=== PATIENT | female | born 1980 | race Two or more races ===

== ENCOUNTER 2018-11-04 10:33 | Emergency (ER) | payer MEDICAID ==
[~2018-11-04] VITALS: Ht 160 cm; Wt 64.4 kg
[2018-11-04 11:15] VITALS: BP 112/43
--- NOTE | 2018-11-04 11:15 | NUR ---
ED Nurse Note: Pt walked in from home due to insect bite on L upper arm/ unknown insect since Sunday11/01/18, causing her dizziness since then. Pain 05/27 alondra. AOx4, VSS. Will cont to monitor.
[2018-11-04] MEDS ORDERED: BACTRIM DS TAB1 EAC1 ORAL (11:55)
[2018-11-04] MEDS ORDERED: CEPHALEXIN500 MG ORAL (11:55)
[2018-11-04 12:03] VITALS: BP 116/68
--- NOTE | 2018-11-04 12:04 | NUR ---
ED Nurse Note: PT SITTING PEACEFULLY IN CHAIR IN NAD. AOX4. PRESCRIPTIONS AND DISCHARGE PAPERWORK EXPLAINED TO PT. PT VERBALIZES UNDERSTANDING AND ALL QUESTIONS ANSWERED. PRESCRIPTIONS AND DISCHARGE PAPERWORK GIVEN TO PT AND ID WRISTBAND REMOVED. PT WALKED OUT OF ER WITH STEADY GAIT.
--- NOTE | 2018-11-06 21:23 | Emergency Room Report ---
History of Present Illness General Chief Complaint: Animal Bite Source: Patient Present Illness HPI 37-year-old female presents ED for evaluation. Patient complaining of pain and swelling to left forearm 3 days. States she was bitten by some insect. Notes redness and swelling to the left forearm. Throbbing, 8 out of 10, nonradiating. Denies fevers or chills. Denies any discharge. No other aggravating relieving factors. Denies any other associated symptoms Allergies: Coded Allergies: No Known Allergies (Unverified , 11/04/18) Patient History Past Medical History: none Past Surgical History: none Pertinent Family History: none Social History: Denies: smoking, alcohol use, drug use Last Menstrual Period: 10/15/18 Now: No Immunizations: UTD Reviewed Nursing Documentation: PMH: Agreed; PSxH: Agreed Nursing Documentation-PMH Past Medical History: No Stated History Review of Systems All Other Systems: negative except mentioned in HPI Physical Exam Vital Signs Date Time Temp Pulse Resp B/P (MAP) Pulse Ox O2 Delivery O2 Flow Rate FiO2 11/04/18 10:41 98.2 102 21 110/43 97 Room Air Sp02 EP Interpretation: reviewed, normal General Appearance: no apparent distress, alert, GCS 15, non-toxic Head: normocephalic Eyes: bilateral eye normal inspection, bilateral eye PERRL ENT: normal ENT inspection Neck: normal inspection Respiratory: normal inspection Cardiovascular #1: normal inspection Gastrointestinal: normal inspection Rectal: deferred Genitourinary: no CVA tenderness Musculoskeletal: normal inspection Neurologic: alert, oriented x3, responsive, motor strength/tone normal, sensory intact, speech normal Psychiatric: normal inspection Skin: other - 2cm area of induration/erythema L forearm . no discharge Lymphatic: normal inspection Medical Decision Making Diagnostic Impression: Primary Impression: Insect bite Qualified Codes: S50.862A - Insect bite (nonvenomous) of left forearm, initial encounter; W57.XXXA - Bitten or stung by nonvenomous insect and other nonvenomous arthropods, initial encounter ER Course Hospital Course 37-year-old female presents to ED with redness, swelling to L forearm Differential diagnoses include: Cellulitis, dermatitis, insect bite, abscess Clinical course Patient placed on stretcher. After initial history, physical exam reveals a female in no acute distress. On exam there is a site for mild erythema and induration to the L forearm. There is no fluctuance. No swelling or pain to the left elbow. patient afebrile, nontoxic-appearing. Consistent with insect bite with superinfection. We'll discharge with antibiotics. Recommend warm compresses. Safe for discharge close outpatient follow-up. We'll provide referrals Diagnosis - bug bite stable and discharged to home with prescription for bactrim, Keflex. Instructed to followup with PMD. Instructed return to ED if symptoms recur or worsen Last Vital Signs Date Time Temp Pulse Resp B/P (MAP) Pulse Ox O2 Delivery O2 Flow Rate FiO2 11/04/18 12:03 98.4 82 20 116/68 100 Room Air Status: improved Disposition: HOME, SELF-CARE Condition: Stable Scripts Trimethoprim/Sulfamethoxazole 160/800* (BACTRIM DS TABLET*) 1 Each Tablet 1 TAB ORAL Q12H, #14 TAB 0 Refills Prov: Gregory Laguerre MD 11/04/18 Cephalexin* (KEFLEX*) 500 Mg Capsule 500 MG ORAL EVERY 6 HOURS for 7 Days, CAP Prov: Gregory Laguerre MD 11/04/18 Referrals: NOT CHOSEN IPA/,REFERRING (PCP) [facility] Patricia Yepez [facility] Patient Instructions: Insect Bite, [id number] Gregory Laguerre MD Nov 06, 2018 21:23
== END 2018-11-04 12:15 | disposition home or self-care (01) ==
LOC: EMR 11:55
DX: S50.862A Insect bite (nonvenomous) of left forearm, initial encounter (principal); W57.XXXA Bitten or stung by nonvenomous insect and other nonvenomous arthropods, initial encounter; Y92.9 Unspecified place or not applicable
CPT/HCPCS: 99282

== ENCOUNTER 2018-11-14 18:28 | Inpatient (IN) | payer MEDICAID ==
[~2018-11-14] VITALS: Ht 157.5 cm; Wt 57.6 kg
[~2018-11-14 18:28] MED LIST: BACTRIM DS TAB1 EAC1 ORAL; CEPHALEXIN500 MG ORAL
[2018-11-14] MEDS ORDERED: NKM (18:37)
[2018-11-14 19:40] LABS: ANION GAP 9 mmol/L (5-15); BLOOD UREA NITROGEN 12 mg/dL (7-18); CALCIUM 9.1 MG/DL (8.5-10.1); CARBON DIOXIDE 25 MMOL/L (21-32); CHLORIDE 103 MMOL/L (98-107); CREATININE 0.8 MG/DL (0.55-1.30); POTASSIUM 3.5 MMOL/L (3.5-5.1); SODIUM 137 MMOL/L (136-145)
[2018-11-14 19:43] LABS: APPEARANCE,URINE SLIGHTLY CLOUDY; BILIRUBIN, URINE NEGATIVE (NEGATIVE); COLOR,URINE PALE YELLOW; GLUCOSE, URINE (UA) NEGATIVE (NEGATIVE); KETONES,URINE NEGATIVE (NEGATIVE); LEUKOCYTE ESTERASE ,URINE NEGATIVE (NEGATIVE); NITRITE,URINE NEGATIVE (NEGATIVE); PH,URINE 5 (4.5-8.0); PROTEIN,URINE 1+ (NEGATIVE); UROBILINOGEN,URINE NORMAL MG/DL (0.0-1.0)
[2018-11-14 19:44] LABS: ALANINE AMINOTRANSFERASE 37 U/L (12-78); ALBUMIN 3.5 G/DL (3.4-5.0); ALBUMIN/GLOBULIN RATIO 0.8 (1.0-2.7); ALKALINE PHOSPHATASE 125 U/L (46-116); ASPARTATE AMINO TRANSFERASE 14 U/L (15-37); BILIRUBIN,TOTAL 0.5 MG/DL (0.2-1.0)
[2018-11-14 19:45] LABS: INR 1.1 (0.9-1.1)
[2018-11-14 19:54] VITALS: BP 111/61
--- NOTE | 2018-11-14 19:54 | NUR ---
ER Nurse Note: pt. came from home c/o left ear pain headache cough for 10 days, fever 100.3. Pt was sent from dr. Pro for anemia hgb 4.8. Pt a&ox4, VSS, no signs of distress. Pt is pallor, warm to touch. Pupils equal, reactive to light. Pt ambulatory. ERMD at pt side; will continue to montior.
[2018-11-14 20:19] LABS: HEMATOCRIT 11.6 % (37.0-47.0); MEAN CORPUSCULAR VOLUME 92 FL (80-99); RED BLOOD COUNT 1.26 M/UL (4.20-5.40); RED CELL DISTRIBUTION WIDTH 11.4 % (11.6-14.8); WHITE BLOOD COUNT 2.2 K/UL (4.8-10.8)
[2018-11-14 20:23] LABS: HEMOGLOBIN 4.1 G/DL (12.0-16.0); PLATELET COUNT 6 K/UL (150-450)
[2018-11-14] MEDS ORDERED: Acetaminophen 500mg (ES) tab ORAL ONE (21:15)
[2018-11-14 21:30] VITALS: BP 109/69
--- NOTE | 2018-11-14 21:30 | NUR ---
ER Nurse Note: Hgb 4.1; ERMD aware. Pt started first unit of blood; tolerating well. Pretransfusion temp 101.3; ERMD aware; meds ordered and given. Monitoring pt for a/e. Will continue to montior.
[2018-11-14 21:35] VITALS: BP 105/65
[2018-11-14 21:40] VITALS: BP 107/68
[2018-11-14 21:45] VITALS: BP 107/68
--- NOTE | 2018-11-14 22:30 | NUR ---
ER Nurse Note: Pt tolerating blood well; no signs of a/e. All orders given per ERMD orders. All safety measures met. Will continue to montior.
[2018-11-14] MEDS ORDERED: Oseltamivir 75mg cap ORAL ONE (22:45)
--- NOTE | 2018-11-14 22:49 | Emergency Room Report ---
History of Present Illness General Chief Complaint: Abnormal Labs Source: Patient, Family Member Present Illness HPI 37-year-old female presents ED for evaluation. Patient referred by PMD for evaluation of dizziness and weakness. Hemoglobin performed by PMD was 4.8. Patient denies any vaginal bleeding. Denies any rectal bleeding. States she also has a fever with cough and earache on the left side. Throbbing, 7 out of 10, nonradiating. No other aggravating relieving factors. Denies any other associated symptoms Allergies: Coded Allergies: No Known Allergies (Unverified , 11/04/18) Patient History Past Medical History: other - anemua Past Surgical History: none Pertinent Family History: none Social History: Denies: smoking, alcohol use, drug use Last Menstrual Period: 11/12/18 Now: No Immunizations: UTD Reviewed Nursing Documentation: PMH: Agreed; PSxH: Agreed Nursing Documentation-PMH Past Medical History: No History, Except For Hx Cardiac Problems: Yes - anemia Review of Systems All Other Systems: negative except mentioned in HPI Physical Exam Vital Signs Date Time Temp Pulse Resp B/P (MAP) Pulse Ox O2 Delivery O2 Flow Rate FiO2 11/14/18 18:30 100.2 116 20 111/61 97 Room Air Sp02 EP Interpretation: reviewed, normal General Appearance: no apparent distress, alert, GCS 15, non-toxic Head: normocephalic, atraumatic Eyes: bilateral eye normal inspection, bilateral eye PERRL ENT: hearing grossly normal, normal pharynx, no angioedema, normal voice Neck: full range of motion, supple/symm/no masses Respiratory: chest non-tender, lungs clear, normal breath sounds, speaking full sentences Cardiovascular #1: regular rate, rhythm, no edema Cardiovascular #2: 2+ carotid (R), 2+ carotid (L), 2+ radial (R), 2+ radial (L) , 2+ dorsalis pedis (R), 2+ dorsalis pedis (L) Gastrointestinal: normal bowel sounds, non tender, soft, non-distended, no guarding, no rebound Rectal: deferred Genitourinary: normal inspection, no CVA tenderness Musculoskeletal: back normal, gait/station normal, normal range of motion, non- tender Neurologic: alert, oriented x3, responsive, motor strength/tone normal, sensory intact, speech normal Psychiatric: judgement/insight normal, memory normal, mood/affect normal, no suicidal/homicidal ideation Reflexes: 3+ bicep (R), 3+ bicep (L), 3+ tricep (R), 3+ tricep (L), 3+ knee (R) , 3+ knee (L) Skin: normal color, no rash, warm/dry, well hydrated Lymphatic: no adenopathy Medical Decision Making Diagnostic Impression: Primary Impression: Pancytopenia Additional Impressions: Anemia Qualified Codes: D64.9 - Anemia, unspecified Thrombocytopenia Flu-like symptoms ER Course Hospital Course 37-year-old female presents to ED with dizziness and referred for low hemoglobin. Also complaining of fever and sore throat Differential diagnoses include: anemia requiring transfusion, microcytic anemia , macrocytic anemia, heavy blood loss Clinical course Patient placed on stretcher. After initial history and physical I ordered labs , EKG, IVFs, CXR, UA Labs- leukopenia, hemoglobin 4.1, platelets 6. There is significant pancytopenia EKGnormal sinus rhythm no acute ischemic changes interpreted by me Chest x-ray unremarkable No obvious source of fever. Consideration for influenza. Given Tamiflu. Discussed findings with patient. Patient is not aware of history of pancytopenia. No active bleeding. PRBCs ordered. Platelets ordered She will be admitted to Dr. Oneil Diagnosis - pancytopenia, anemia, thrombocytopenia, flu like symptoms Admitted to floor in serious condition Labs Test 11/14/18 19:00 11/14/18 19:15 11/14/18 19:55 Prothrombin Time 11.3 SEC (9.30-11.50) Prothromb Time International Ratio 1.1 (0.9-1.1) Activated Partial Thromboplast Time 27 SEC (23-33) Sodium Level 137 MMOL/L (136-145) Potassium Level 3.5 MMOL/L (3.5-5.1) Chloride Level 103 MMOL/L (98-107) Carbon Dioxide Level 25 MMOL/L (21-32) Anion Gap 9 mmol/L (5-15) Blood Urea Nitrogen 12 mg/dL (7-18) Creatinine 0.8 MG/DL (0.55-1.30) Estimat Glomerular Filtration Rate > 60 mL/min (>60) Glucose Level 139 MG/DL (74-106) Calcium Level 9.1 MG/DL (8.5-10.1) Total Bilirubin 0.5 MG/DL (0.2-1.0) Aspartate Amino Transf (AST/SGOT) 14 U/L (15-37) Alanine Aminotransferase (ALT/SGPT) 37 U/L (12-78) Alkaline Phosphatase 125 U/L (46-116) Total Protein 7.7 G/DL (6.4-8.2) Albumin 3.5 G/DL (3.4-5.0) Globulin 4.2 g/dL Albumin/Globulin Ratio 0.8 (1.0-2.7) Lipase 308 U/L (73-393) Urine Color Pale yellow Urine Appearance Slightly cloudy Urine pH 5 (4.5-8.0) Urine Specific [place] 1.015 (1.005-1.035) Urine Protein 1+ (NEGATIVE) Urine Glucose (UA) Negative (NEGATIVE) Urine Ketones Negative (NEGATIVE) Urine Blood 5+ (NEGATIVE) Urine Nitrite Negative (NEGATIVE) Urine Bilirubin Negative (NEGATIVE) Urine Urobilinogen Normal MG/DL (0.0-1.0) Urine Leukocyte Esterase Negative (NEGATIVE) Urine RBC 10-15 /HPF (0 - 2) Urine WBC 0 /HPF (0 - 2) Urine Squamous Epithelial Cells Moderate /LPF (NONE/OCC) Urine Bacteria Occasional /HPF (NONE) Urine HCG, Qualitative Negative (NEGATIVE) White Blood Count 2.2 K/UL (4.8-10.8) Red Blood Count 1.26 M/UL (4.20-5.40) Hemoglobin 4.1 G/DL (12.0-16.0) Hematocrit 11.6 % (37.0-47.0) Mean Corpuscular Volume 92 FL (80-99) Mean Corpuscular Hemoglobin 32.5 PG (27.0-31.0) Mean Corpuscular Hemoglobin Concent 35.3 G/DL (32.0-36.0) Red Cell Distribution Width 11.4 % (11.6-14.8) Platelet Count 6 K/UL (150-450) Mean Platelet Volume 7.2 FL (6.5-10.1) Neutrophils (%) (Auto) % (45.0-75.0) Lymphocytes (%) (Auto) % (20.0-45.0) Monocytes (%) (Auto) % (1.0-10.0) Eosinophils (%) (Auto) % (0.0-3.0) Basophils (%) (Auto) % (0.0-2.0) Differential Total Cells Counted 100 Neutrophils % (Manual) 2 % (45-75) Lymphocytes % (Manual) 98 % (20-45) Monocytes % (Manual) 0 % (1-10) Eosinophils % (Manual) 0 % (0-3) Basophils % (Manual) 0 % (0-2) Band Neutrophils 0 % (0-8) Nucleated Red Blood Cells 3 /100 WBC Platelet Estimate Decreased Platelet Morphology Normal Spherocytes 2+ EKG Diagnostic Results Rate: normal Rhythm: NSR ST Segments: no acute changes ASA given to the pt in ED: No Rhythm Strip Diag. Results EP Interpretation: yes Rhythm: NSR, no PVC's, no ectopy Chest X-Ray Diagnostic Results Chest X-Ray Diagnostic Results : Chest X-Ray Ordered: Yes # of Views/Limited/Complete: 1 View Indication: Other - dizzy EP Interpretation: Yes Interpretation: no consolidation, no effusion, no pneumothorax, no acute cardiopulmonary disease Impression: No acute disease Electronically Signed by: Electronically signed by Gregory Laguerre MD Last Vital Signs Date Time Temp Pulse Resp B/P (MAP) Pulse Ox O2 Delivery O2 Flow Rate FiO2 11/14/18 21:40 101.0 103 18 107/68 100 Room Air Status: improved Disposition: ADMITTED INPATIENT Condition: Serious Referrals: NOT CHOSEN IPA/,REFERRING (PCP) Gregory Laguerre MD Nov 14, 2018 22:49
[2018-11-14 23:25] VITALS: BP 116/70
--- NOTE | 2018-11-14 23:25 | NUR ---
ER Nurse Note: Report given to LEYDI Vidal for continuity of care. Pt a&ox4, VSS, no signs of distress. Pt had fever prior to blood transfusion. Pt infusing blood during transport. All belongings taken with pt.
[2018-11-14] MEDS ORDERED: Morphine Sulfate 2mg/ml Inj(IV/IM USE ONLY) IVP PRN (23:30)
--- NOTE | 2018-11-14 23:50 | NUR ---
NURSE NOTES: Received report from Alva Kurtz RN. from Ed regarding patients transfer onto TELE floor. Belongings checklist done at bedside with patient present. Head to toe assessment initiated. Kept clean, dry, and comfortable in bed. Safety precaution in place at all times. Informed attending MD regarding patients arrival on the floor. Addendum: 11/15/18 at 0700 by NEREIDA SOSA RN Patient came in with 1 ongoing PRBC infusion. Will continue to monitor, No A/R noted at this time
[2018-11-15] VITALS: BP 105/70
[2018-11-15] MEDS ORDERED: Norco 5mg/325mg tab ORAL PRN ×3 (00:30→20:15)
--- NOTE | 2018-11-15 00:30 | NUR ---
NURSE NOTES: Spoke with Zach Oneil MD. New orders received and carried out. Will continue plan of care and will monitor for any changes noted.
--- NOTE | 2018-11-15 01:00 | NUR ---
NURSE NOTES: Order for 1 of 2 units of Platelet to be given now per MD Thad. Called Blood bank and spoke with Fernando to verify availability. No available stock at this time. Asked to call and let PATROLLER know once there is one available. Will continue to monitor
--- NOTE | 2018-11-15 02:30 | NUR ---
NURSE NOTES: Received call from Te from Blood bank. 1 Platelet ready to be picked up.
--- NOTE | 2018-11-15 02:48 | NUR ---
NURSE NOTES: Started platelet infusion at minimum rate. Pre transfusion VS obtained; BP 106/66, P 87, T 97.7
--- NOTE | 2018-11-15 03:02 | NUR ---
NURSE NOTES: 15 min after start VS; BP 114/75, P 85, T 97.9. No A/R noted. Will continue to monitor
--- NOTE | 2018-11-15 03:20 | NUR ---
NURSE NOTES: Noted complaints of scratching and itching post 1 of 2 Platelet infusion, Sent down to blood bank and notified MD. New orders received and carried out. Given Benadryl 50mg PO x1 now and continue transfusion. Called Blood bank regarding second platelet availability, they will notify when available. Will continue to monitor
[2018-11-15 04:00] VITALS: BP 109/74
--- NOTE | 2018-11-15 06:00 | NUR ---
NURSE NOTES: Notified blood bank to call TELE floor regarding second bag of platelet availability. Continue to monitor
--- NOTE | 2018-11-15 06:51 | NUR ---
CASE MANAGEMENT:REVIEW 37 YR OLD FEMALE PRESENTED TO ER CC: FEVER 100.3, COUGH X10 DAYS AND LT EAR PAIN SI: ANEMIA. PANCYTOPENIA. THROMBOCYTOPENIA 101.3 116 20 109/69 97% ON RA WBC-2.2 RBC-1.2 H/H-4.1/11.6 PLT-6 IS: 1L NS BOLUS X1 TYLENOL PO X1 TAMIFLU PO X1 CXR TYPE & SCREEN TRANSFUSE 1 UNIT PRBC'S : TO TELEMETRY PLAN: ADDITIONAL PRBC'S PLATELETS ORDERED BONE MARROW CULTURE INTERQUAL CRITERIA MET
[2018-11-15 07:23] LABS: HEMATOCRIT 16.8 % (37.0-47.0); MEAN CORPUSCULAR VOLUME 89 FL (80-99); PLATELET COUNT 18 K/UL (150-450); RED BLOOD COUNT 1.89 M/UL (4.20-5.40); RED CELL DISTRIBUTION WIDTH 11.8 % (11.6-14.8)
[2018-11-15 07:32] VITALS: BP 115/75
--- NOTE | 2018-11-15 07:39 | NUR ---
HAND-OFF: Report given to Makayla Moore RN. Patient in bed asleep in stable condition, endorsed plan of care.
--- NOTE | 2018-11-15 07:39 | NUR ---
NURSE NOTES: pt awake alert, no distress. no sob. call light within reach. bed in lowest position, locked.
[2018-11-15] MEDS ORDERED: Miralax 17gm pkt ORAL PRN ×2 (07:45→20:15)
[2018-11-15] MEDS ORDERED: Morphine Sulfate 2mg/ml Inj(IV/IM USE ONLY) IVP PRN ×6 (07:45→21:00)
[2018-11-15] MEDS ORDERED: Zolpidem 5mg tab ORAL PRN ×2 (07:45→20:15)
[2018-11-15] MEDS ORDERED: Mylanta II UD 30ml ORAL PRN ×2 (07:45→20:15)
[2018-11-15] MEDS ORDERED: LORazepam Inj 2mg/ml 1ml IV PRN ×2 (07:45→20:15)
[2018-11-15 07:51] LABS: WHITE BLOOD COUNT 1.6 K/UL (4.8-10.8)
[2018-11-15 08:00] LABS: ALANINE AMINOTRANSFERASE 28 U/L (12-78); ALBUMIN 3.1 G/DL (3.4-5.0); ALBUMIN/GLOBULIN RATIO 0.8 (1.0-2.7); ALKALINE PHOSPHATASE 104 U/L (46-116); ANION GAP 12 mmol/L (5-15); ASPARTATE AMINO TRANSFERASE 14 U/L (15-37); BILIRUBIN,TOTAL 1.1 MG/DL (0.2-1.0); BLOOD UREA NITROGEN 8 mg/dL (7-18); CALCIUM 8.7 MG/DL (8.5-10.1); CARBON DIOXIDE 22 MMOL/L (21-32); CHLORIDE 106 MMOL/L (98-107); CREATININE 0.7 MG/DL (0.55-1.30); PHOSPHORUS 4.1 MG/DL (2.5-4.9); POTASSIUM 3.9 MMOL/L (3.5-5.1); SODIUM 140 MMOL/L (136-145)
--- NOTE | 2018-11-15 08:00 | NUR ---
NURSE NOTES: relayed hgb and platelet level to Dr Oneil, received order to give 1 more unit prbc and 1 more platelet Addendum: 11/15/18 at 0801 by ISAAC GOODE [facility] platelet will be ready in 10 minutes and they will call
[2018-11-15 08:03] LABS: BILIRUBIN,DIRECT 0.2 MG/DL (0.0-0.3)
[2018-11-15] MEDS ORDERED: DiphenhydrAMINE 50mg/ml Inj IVP PRN ×2 (10:00→20:15)
--- NOTE | 2018-11-15 10:59 | Diagnostic Imaging Report ---
Indication: Cough Technique: One view of the chest Comparison: none Findings: Lungs and pleural spaces are clear. Heart size is normal Impression: No acute process
--- NOTE | 2018-11-15 11:22 | NUR ---
NURSE NOTES: 1unit platelet given no a/r noted. afebrile. 1unit prbc infusing at this time, no a/r noted within the first 15minutes. call light within reach. boyfriend at bedside.
[2018-11-15 12:00] VITALS: BP 118/73
--- NOTE | 2018-11-15 13:40 | History & Physical ---
History and Physical History & Physicial Anthony Oneil MD Nov 15, 2018 13:40
--- NOTE | 2018-11-15 14:27 | Consultation ---
History of Present Illness General Date patient seen: Nov 15, 2018 Chief Complaint: Abnormal Labs Present Illness HPI 37-year-old female presents ED for evaluation of dizziness and weakness. Hemoglobin performed by PMD was 4.8. Patient denies any vaginal bleeding. Denies any rectal bleeding. Pt was found to be pancytopenic and admitted for further management. Allergies: Coded Allergies: No Known Allergies (Unverified , 11/04/18) Medication History Scheduled Cephalexin* (Keflex*), 500 MG ORAL EVERY 6 HOURS No Known Medications* (NKM - No Known Medications*), 0 ., (Reported) Trimethoprim/Sulfamethoxazole 160/800* (Bactrim Ds Tablet*), 1 TAB ORAL Q12H Patient History Healthcare decision maker Resuscitation status Full Code Advanced Directive on File No Past Medical/Surgical History Past Medical/Surgical History: (1) Pancytopenia (2) Anemia Review of Systems All Other Systems: negative except mentioned in HPI Physical Exam General Appearance: WD/WN Lines, tubes and drains: peripheral HEENT: normocephalic, atraumatic Neck: non-tender, normal alignment Respiratory/Chest: chest wall non-tender, lungs clear Cardiovascular/Chest: normal peripheral pulses, normal rate Abdomen: normal bowel sounds Last 24 Hour Vital Signs Date Time Temp Pulse Resp B/P (MAP) Pulse Ox O2 Delivery O2 Flow Rate FiO2 11/15/18 12:00 98.1 93 18 118/73 (88) 98 11/15/18 11:56 99 11/15/18 08:24 96 11/15/18 07:36 Room Air 11/15/18 07:32 98.4 90 18 115/75 (88) 98 11/15/18 04:00 98.4 87 18 109/74 (86) 98 11/15/18 04:00 78 11/15/18 01:17 Room Air 11/15/18 00:00 97.7 81 20 105/70 (82) 96 11/15/18 00:00 88 11/14/18 23:25 101.0 94 18 116/70 100 Room Air 11/14/18 23:25 101.0 92 18 116/70 100 Room Air 11/14/18 23:21 101.0 11/14/18 21:45 101.0 103 18 107/68 100 Room Air 11/14/18 21:40 101.0 103 18 107/68 100 Room Air 11/14/18 21:35 101.0 103 19 105/65 100 11/14/18 21:30 101.3 105 17 109/69 100 Room Air 11/14/18 19:54 100.2 20 111/61 97 Room Air 11/14/18 18:30 100.2 116 20 111/61 97 Room Air Intake and Output 11/14/18 11/15/18 19:00 07:00 Intake Total 2120 ml Balance 2120 ml Intake Oral 120 ml IV Total 2000 ml # Voids 4 # Bowel Movements 1 Laboratory Tests Test 11/14/18 19:00 11/14/18 19:15 11/14/18 19:55 11/15/18 04:50 Prothrombin Time 11.3 SEC (9.30-11.50) Prothromb Time International Ratio 1.1 (0.9-1.1) Activated Partial Thromboplast Time 27 SEC (23-33) Sodium Level 137 MMOL/L (136-145) 140 MMOL/L (136-145) Potassium Level 3.5 MMOL/L (3.5-5.1) 3.9 MMOL/L (3.5-5.1) Chloride Level 103 MMOL/L (98-107) 106 MMOL/L (98-107) Carbon Dioxide Level 25 MMOL/L (21-32) 22 MMOL/L (21-32) Anion Gap 9 mmol/L (5-15) 12 mmol/L (5-15) Blood Urea Nitrogen 12 mg/dL (7-18) 8 mg/dL (7-18) Creatinine 0.8 MG/DL (0.55-1.30) 0.7 MG/DL (0.55-1.30) Estimat Glomerular Filtration Rate > 60 mL/min (>60) > 60 mL/min (>60) Glucose Level 139 MG/DL (74-106) H 92 MG/DL (74-106) Calcium Level 9.1 MG/DL (8.5-10.1) 8.7 MG/DL (8.5-10.1) Total Bilirubin 0.5 MG/DL (0.2-1.0) 1.1 MG/DL (0.2-1.0) H Aspartate Amino Transf (AST/SGOT) 14 U/L (15-37) L 14 U/L (15-37) L Alanine Aminotransferase (ALT/SGPT) 37 U/L (12-78) 28 U/L (12-78) Alkaline Phosphatase 125 U/L (46-116) H 104 U/L (46-116) Total Protein 7.7 G/DL (6.4-8.2) 6.9 G/DL (6.4-8.2) Albumin 3.5 G/DL (3.4-5.0) 3.1 G/DL (3.4-5.0) L Globulin 4.2 g/dL 3.8 g/dL Albumin/Globulin Ratio 0.8 (1.0-2.7) L 0.8 (1.0-2.7) L Lipase 308 U/L (73-393) Urine Color Pale yellow Urine Appearance Slightly cloudy Urine pH 5 (4.5-8.0) Urine Specific [place] 1.015 (1.005-1.035) Urine Protein 1+ (NEGATIVE) H Urine Glucose (UA) Negative (NEGATIVE) Urine Ketones Negative (NEGATIVE) Urine Blood 5+ (NEGATIVE) H Urine Nitrite Negative (NEGATIVE) Urine Bilirubin Negative (NEGATIVE) Urine Urobilinogen Normal MG/DL (0.0-1.0) Urine Leukocyte Esterase Negative (NEGATIVE) Urine RBC 10-15 /HPF (0 - 2) H Urine WBC 0 /HPF (0 - 2) Urine Squamous Epithelial Cells Moderate /LPF (NONE/OCC) H Urine Bacteria Occasional /HPF (NONE) Urine HCG, Qualitative Negative (NEGATIVE) White Blood Count 2.2 K/UL (4.8-10.8) L 1.6 K/UL (4.8-10.8) *L Red Blood Count 1.26 M/UL (4.20-5.40) L 1.89 M/UL (4.20-5.40) L Hemoglobin 4.1 G/DL (12.0-16.0) *L 6.0 G/DL (12.0-16.0) Hematocrit 11.6 % (37.0-47.0) L 16.8 % (37.0-47.0) #L Mean Corpuscular Volume 92 FL (80-99) 89 FL (80-99) Mean Corpuscular Hemoglobin 32.5 PG (27.0-31.0) H 31.7 PG (27.0-31.0) H Mean Corpuscular Hemoglobin Concent 35.3 G/DL (32.0-36.0) 35.8 G/DL (32.0-36.0) Red Cell Distribution Width 11.4 % (11.6-14.8) L 11.8 % (11.6-14.8) Platelet Count 6 K/UL (150-450) *L 18 K/UL (150-450) #L Mean Platelet Volume 7.2 FL (6.5-10.1) 7.0 FL (6.5-10.1) Neutrophils (%) (Auto) % (45.0-75.0) % (45.0-75.0) Lymphocytes (%) (Auto) % (20.0-45.0) % (20.0-45.0) Monocytes (%) (Auto) % (1.0-10.0) % (1.0-10.0) Eosinophils (%) (Auto) % (0.0-3.0) % (0.0-3.0) Basophils (%) (Auto) % (0.0-2.0) % (0.0-2.0) Differential Total Cells Counted 100 100 Neutrophils % (Manual) 2 % (45-75) L 3 % (45-75) L Lymphocytes % (Manual) 98 % (20-45) H 95 % (20-45) H Monocytes % (Manual) 0 % (1-10) L 2 % (1-10) Eosinophils % (Manual) 0 % (0-3) 0 % (0-3) Basophils % (Manual) 0 % (0-2) 0 % (0-2) Band Neutrophils 0 % (0-8) 0 % (0-8) Nucleated Red Blood Cells 3 /100 WBC Platelet Estimate Decreased L Decreased L Platelet Morphology Normal Normal Spherocytes 2+ 1+ Phosphorus Level 4.1 MG/DL (2.5-4.9) Magnesium Level 2.0 MG/DL (1.8-2.4) Direct Bilirubin 0.2 MG/DL (0.0-0.3) Microbiology Date/Time Source Procedure Growth Status 11/14/18 21:22 Nasal Nares Influenza Types A,B Antigen (MAKAYLA) - Final Complete Height (Feet): 5 Height (Inches): 2.00 Weight (Pounds): 127 Medications Current Medications Medications (Trade) Dose Ordered Sig/Paco Route PRN Reason Start Time Stop Time Status Last Admin Dose Admin Acetaminophen (Tylenol) 650 mg Q4H PRN ORAL fever 11/15/18 07:45 12/15/18 07:44 Acetaminophen/ Hydrocodone Bitart ([place] 5/325) 1 tab Q6H PRN ORAL for mild pain (1-3) 11/15/18 08:00 11/22/18 00:29 Al Hydroxide/Mg Hydroxide (Mylanta II) 30 ml Q6H PRN ORAL dyspepsia 11/15/18 07:45 12/15/18 07:44 Dextrose (Dextrose 50%) STAT PRN IV Hypoglycemia 11/15/18 07:45 12/15/18 07:44 Diphenhydramine HCl (Benadryl) 25 mg Q6H PRN IVP Itching 11/15/18 10:00 12/15/18 09:59 Lorazepam (Ativan 2mg/ml 1ml) 0.5 mg Q4H PRN IV For Anxiety 11/15/18 07:45 11/22/18 07:44 Morphine Sulfate (Morphine Sulfate) 1 mg EVERY 4 HOURS PRN IVP for moderate pain (4-6) 11/15/18 08:00 11/22/18 07:44 Morphine Sulfate (Morphine Sulfate) 2 mg Q4HR PRN IVP severe pain (7-10) 11/15/18 08:00 Ondansetron HCl (Zofran) 4 mg Q4HR PRN IVP Nausea & Vomiting 11/14/18 23:30 Ondansetron HCl (Zofran) 4 mg Q6H PRN IVP Nausea & Vomiting 11/15/18 07:45 12/15/18 07:44 Polyethylene Glycol (Miralax) 17 gm HSPRN PRN ORAL Constipation 11/15/18 07:45 12/15/18 07:44 Zolpidem Tartrate (Ambien) 5 mg HSPRN PRN ORAL Insomnia 11/15/18 07:45 11/22/18 07:44 Assessment/Plan Problem List: (1) Thrombocytopenia ICD Codes: D69.6 - Thrombocytopenia, unspecified SNOMED: 469510256 (2) Flu-like symptoms ICD Codes: R68.89 - Other general symptoms and signs SNOMED: 825026858 Assessment/Plan reverse isolation. Hematology evaluation ID evaluation Adalberto Escalera MD Nov 15, 2018 14:26
--- NOTE | 2018-11-15 15:22 | Consultation ---
History of Present Illness General Date patient seen: Nov 15, 2018 Chief Complaint: Abnormal Labs Present Illness HPI 37 y/o F with hx of anemia presents to ED on 11/14 with weakness, dizziness. Patient was found to be pancytopenic with Hgb of 4.8. Also endorses fever, cough and L ear pain (throbbing, 7/10). Symptoms started 2 weeks ago with PELLETIER, dry cough and L ear pain. Fevers started 1 week ago (she noticed after she saw a skin lession that resembled a "spider bite'"). Her sx progressed and she continue to feel weak, dizziness. She lives at her sister house where the sister lives with and 8 month and 2 year kids which were with cold symptoms prior to the onset of her symptoms. 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 Sexualy active with one partner; no condoms. Dizziness and PELLETIER has now resolved after blood transfusion. Denied vaginal and rectal bleeding, rash, n/v/d, abd pain. Allergies: Coded Allergies: No Known Allergies (Unverified , 11/04/18) Medication History Scheduled Cephalexin* (Keflex*), 500 MG ORAL EVERY 6 HOURS No Known Medications* (NKM - No Known Medications*), 0 ., (Reported) Trimethoprim/Sulfamethoxazole 160/800* (Bactrim Ds Tablet*), 1 TAB ORAL Q12H Patient History Healthcare decision maker Resuscitation status Full Code Advanced Directive on File No Patient History Narrative Pmhx: as above Shx: Denies: smoking, alcohol use, drug use Fhx: non contributory Review of Systems All Other Systems: negative except mentioned in HPI Physical Exam Physical Exam Narrative General Appearance: WD/WN Lines, tubes and drains: peripheral HEENT: normocephalic, atraumatic Neck: non-tender, normal alignment Respiratory/Chest: chest wall non-tender, lungs clear Cardiovascular/Chest: normal peripheral pulses, normal rate Abdomen: normal bowel sounds Last 24 Hour Vital Signs Date Time Temp Pulse Resp B/P (MAP) Pulse Ox O2 Delivery O2 Flow Rate FiO2 11/15/18 12:00 98.1 93 18 118/73 (88) 98 11/15/18 11:56 99 11/15/18 08:24 96 11/15/18 07:36 Room Air 11/15/18 07:32 98.4 90 18 115/75 (88) 98 11/15/18 04:00 98.4 87 18 109/74 (86) 98 11/15/18 04:00 78 11/15/18 01:17 Room Air 11/15/18 00:00 97.7 81 20 105/70 (82) 96 11/15/18 00:00 88 11/14/18 23:25 101.0 94 18 116/70 100 Room Air 11/14/18 23:25 101.0 92 18 116/70 100 Room Air 11/14/18 23:21 101.0 11/14/18 21:45 101.0 103 18 107/68 100 Room Air 11/14/18 21:40 101.0 103 18 107/68 100 Room Air 11/14/18 21:35 101.0 103 19 105/65 100 11/14/18 21:30 101.3 105 17 109/69 100 Room Air 11/14/18 19:54 100.2 20 111/61 97 Room Air 11/14/18 18:30 100.2 116 20 111/61 97 Room Air Intake and Output 11/14/18 11/15/18 19:00 07:00 Intake Total 2120 ml Balance 2120 ml Intake Oral 120 ml IV Total 2000 ml # Voids 4 # Bowel Movements 1 Laboratory Tests Test 11/14/18 19:00 11/14/18 19:15 11/14/18 19:55 11/15/18 04:50 Prothrombin Time 11.3 SEC (9.30-11.50) Prothromb Time International Ratio 1.1 (0.9-1.1) Activated Partial Thromboplast Time 27 SEC (23-33) Sodium Level 137 MMOL/L (136-145) 140 MMOL/L (136-145) Potassium Level 3.5 MMOL/L (3.5-5.1) 3.9 MMOL/L (3.5-5.1) Chloride Level 103 MMOL/L (98-107) 106 MMOL/L (98-107) Carbon Dioxide Level 25 MMOL/L (21-32) 22 MMOL/L (21-32) Anion Gap 9 mmol/L (5-15) 12 mmol/L (5-15) Blood Urea Nitrogen 12 mg/dL (7-18) 8 mg/dL (7-18) Creatinine 0.8 MG/DL (0.55-1.30) 0.7 MG/DL (0.55-1.30) Estimat Glomerular Filtration Rate > 60 mL/min (>60) > 60 mL/min (>60) Glucose Level 139 MG/DL (74-106) H 92 MG/DL (74-106) Calcium Level 9.1 MG/DL (8.5-10.1) 8.7 MG/DL (8.5-10.1) Total Bilirubin 0.5 MG/DL (0.2-1.0) 1.1 MG/DL (0.2-1.0) H Aspartate Amino Transf (AST/SGOT) 14 U/L (15-37) L 14 U/L (15-37) L Alanine Aminotransferase (ALT/SGPT) 37 U/L (12-78) 28 U/L (12-78) Alkaline Phosphatase 125 U/L (46-116) H 104 U/L (46-116) Total Protein 7.7 G/DL (6.4-8.2) 6.9 G/DL (6.4-8.2) Albumin 3.5 G/DL (3.4-5.0) 3.1 G/DL (3.4-5.0) L Globulin 4.2 g/dL 3.8 g/dL Albumin/Globulin Ratio 0.8 (1.0-2.7) L 0.8 (1.0-2.7) L Lipase 308 U/L (73-393) Urine Color Pale yellow Urine Appearance Slightly cloudy Urine pH 5 (4.5-8.0) Urine Specific [place] 1.015 (1.005-1.035) Urine Protein 1+ (NEGATIVE) H Urine Glucose (UA) Negative (NEGATIVE) Urine Ketones Negative (NEGATIVE) Urine Blood 5+ (NEGATIVE) H Urine Nitrite Negative (NEGATIVE) Urine Bilirubin Negative (NEGATIVE) Urine Urobilinogen Normal MG/DL (0.0-1.0) Urine Leukocyte Esterase Negative (NEGATIVE) Urine RBC 10-15 /HPF (0 - 2) H Urine WBC 0 /HPF (0 - 2) Urine Squamous Epithelial Cells Moderate /LPF (NONE/OCC) H Urine Bacteria Occasional /HPF (NONE) Urine HCG, Qualitative Negative (NEGATIVE) White Blood Count 2.2 K/UL (4.8-10.8) L 1.6 K/UL (4.8-10.8) *L Red Blood Count 1.26 M/UL (4.20-5.40) L 1.89 M/UL (4.20-5.40) L Hemoglobin 4.1 G/DL (12.0-16.0) *L 6.0 G/DL (12.0-16.0) Hematocrit 11.6 % (37.0-47.0) L 16.8 % (37.0-47.0) #L Mean Corpuscular Volume 92 FL (80-99) 89 FL (80-99) Mean Corpuscular Hemoglobin 32.5 PG (27.0-31.0) H 31.7 PG (27.0-31.0) H Mean Corpuscular Hemoglobin Concent 35.3 G/DL (32.0-36.0) 35.8 G/DL (32.0-36.0) Red Cell Distribution Width 11.4 % (11.6-14.8) L 11.8 % (11.6-14.8) Platelet Count 6 K/UL (150-450) *L 18 K/UL (150-450) #L Mean Platelet Volume 7.2 FL (6.5-10.1) 7.0 FL (6.5-10.1) Neutrophils (%) (Auto) % (45.0-75.0) % (45.0-75.0) Lymphocytes (%) (Auto) % (20.0-45.0) % (20.0-45.0) Monocytes (%) (Auto) % (1.0-10.0) % (1.0-10.0) Eosinophils (%) (Auto) % (0.0-3.0) % (0.0-3.0) Basophils (%) (Auto) % (0.0-2.0) % (0.0-2.0) Differential Total Cells Counted 100 100 Neutrophils % (Manual) 2 % (45-75) L 3 % (45-75) L Lymphocytes % (Manual) 98 % (20-45) H 95 % (20-45) H Monocytes % (Manual) 0 % (1-10) L 2 % (1-10) Eosinophils % (Manual) 0 % (0-3) 0 % (0-3) Basophils % (Manual) 0 % (0-2) 0 % (0-2) Band Neutrophils 0 % (0-8) 0 % (0-8) Nucleated Red Blood Cells 3 /100 WBC Platelet Estimate Decreased L Decreased L Platelet Morphology Normal Normal Spherocytes 2+ 1+ Other Cell Type Pathologist comment Phosphorus Level 4.1 MG/DL (2.5-4.9) Magnesium Level 2.0 MG/DL (1.8-2.4) Direct Bilirubin 0.2 MG/DL (0.0-0.3) Microbiology Date/Time Source Procedure Growth Status 11/14/18 21:22 Nasal Nares Influenza Types A,B Antigen (MAKAYLA) - Final Complete Height (Feet): 5 Height (Inches): 2.00 Weight (Pounds): 127 Medications Current Medications Medications (Trade) Dose Ordered Sig/Paco Route PRN Reason Start Time Stop Time Status Last Admin Dose Admin Acetaminophen (Tylenol) 650 mg Q4H PRN ORAL fever 11/15/18 07:45 12/15/18 07:44 Acetaminophen/ Hydrocodone Bitart ([place] 5/325) 1 tab Q6H PRN ORAL for mild pain (1-3) 11/15/18 08:00 11/22/18 00:29 Al Hydroxide/Mg Hydroxide (Mylanta II) 30 ml Q6H PRN ORAL dyspepsia 11/15/18 07:45 12/15/18 07:44 Dextrose (Dextrose 50%) STAT PRN IV Hypoglycemia 11/15/18 07:45 12/15/18 07:44 Diphenhydramine HCl (Benadryl) 25 mg Q6H PRN IVP Itching 11/15/18 10:00 12/15/18 09:59 Lorazepam (Ativan 2mg/ml 1ml) 0.5 mg Q4H PRN IV For Anxiety 11/15/18 07:45 11/22/18 07:44 Morphine Sulfate (Morphine Sulfate) 1 mg EVERY 4 HOURS PRN IVP for moderate pain (4-6) 11/15/18 08:00 11/22/18 07:44 Morphine Sulfate (Morphine Sulfate) 2 mg Q4HR PRN IVP severe pain (7-10) 11/15/18 08:00 Ondansetron HCl (Zofran) 4 mg Q4HR PRN IVP Nausea & Vomiting 11/14/18 23:30 Ondansetron HCl (Zofran) 4 mg Q6H PRN IVP Nausea & Vomiting 11/15/18 07:45 12/15/18 07:44 Polyethylene Glycol (Miralax) 17 gm HSPRN PRN ORAL Constipation 11/15/18 07:45 12/15/18 07:44 Zolpidem Tartrate (Ambien) 5 mg HSPRN PRN ORAL Insomnia 11/15/18 07:45 11/22/18 07:44 Assessment/Plan Assessment/Plan Abx: Tamiflu x1 11/14 Assessment: Febrile/Viral syndrome- suspect viral URI (likely Flu given sick contacts) but r /o other viral URI and other viral infections (acute HIV, acute mononucleosis like illness :ie EBV, CMV, Toxoplasmosis); r/o parvovirus, r/o non-infectious ( less likely) -influenza sc neg Pancytopenia - No acute process Plan: -Continue empiric Tamiflu #2 despite negative test given high suspicion -HIV ab sc and VL, CMV, EBV, Toxoxoplasmosis, HSV ab, Histoplasma ag and ab, hepatitis panel, parvovirus ab -f/u cx -Monitor CBC/CMP, temperatures -Heme onc eval -neutropenic/droplets precautions Thank you for this consultation. Will continue to follow along with you. Discussed with Marcela Schmitz M.D. Nov 15, 2018 15:22
[2018-11-15 16:00] VITALS: BP 124/70
--- NOTE | 2018-11-15 16:25 | Consultation ---
History of Present Illness General Chief Complaint: Abnormal Labs Present Illness Allergies: Coded Allergies: No Known Allergies (Unverified , 11/04/18) Medication History Scheduled Cephalexin* (Keflex*), 500 MG ORAL EVERY 6 HOURS No Known Medications* (NKM - No Known Medications*), 0 ., (Reported) Trimethoprim/Sulfamethoxazole 160/800* (Bactrim Ds Tablet*), 1 TAB ORAL Q12H Patient History Healthcare decision maker Resuscitation status Full Code Advanced Directive on File No Physical Exam Last 24 Hour Vital Signs Date Time Temp Pulse Resp B/P (MAP) Pulse Ox O2 Delivery O2 Flow Rate FiO2 11/15/18 16:00 98.1 87 18 124/70 (88) 98 11/15/18 12:00 98.1 93 18 118/73 (88) 98 11/15/18 11:56 99 11/15/18 08:24 96 11/15/18 07:36 Room Air 11/15/18 07:32 98.4 90 18 115/75 (88) 98 11/15/18 04:00 98.4 87 18 109/74 (86) 98 11/15/18 04:00 78 11/15/18 01:17 Room Air 11/15/18 00:00 97.7 81 20 105/70 (82) 96 11/15/18 00:00 88 11/14/18 23:25 101.0 94 18 116/70 100 Room Air 11/14/18 23:25 101.0 92 18 116/70 100 Room Air 11/14/18 23:21 101.0 11/14/18 21:45 101.0 103 18 107/68 100 Room Air 11/14/18 21:40 101.0 103 18 107/68 100 Room Air 11/14/18 21:35 101.0 103 19 105/65 100 11/14/18 21:30 101.3 105 17 109/69 100 Room Air 11/14/18 19:54 100.2 20 111/61 97 Room Air 11/14/18 18:30 100.2 116 20 111/61 97 Room Air Intake and Output 11/14/18 11/15/18 19:00 07:00 Intake Total 2120 ml Balance 2120 ml Intake Oral 120 ml IV Total 2000 ml # Voids 4 # Bowel Movements 1 Laboratory Tests Test 11/14/18 19:00 11/14/18 19:15 11/14/18 19:55 11/15/18 04:50 Prothrombin Time 11.3 SEC (9.30-11.50) Prothromb Time International Ratio 1.1 (0.9-1.1) Activated Partial Thromboplast Time 27 SEC (23-33) Sodium Level 137 MMOL/L (136-145) 140 MMOL/L (136-145) Potassium Level 3.5 MMOL/L (3.5-5.1) 3.9 MMOL/L (3.5-5.1) Chloride Level 103 MMOL/L (98-107) 106 MMOL/L (98-107) Carbon Dioxide Level 25 MMOL/L (21-32) 22 MMOL/L (21-32) Anion Gap 9 mmol/L (5-15) 12 mmol/L (5-15) Blood Urea Nitrogen 12 mg/dL (7-18) 8 mg/dL (7-18) Creatinine 0.8 MG/DL (0.55-1.30) 0.7 MG/DL (0.55-1.30) Estimat Glomerular Filtration Rate > 60 mL/min (>60) > 60 mL/min (>60) Glucose Level 139 MG/DL (74-106) H 92 MG/DL (74-106) Calcium Level 9.1 MG/DL (8.5-10.1) 8.7 MG/DL (8.5-10.1) Total Bilirubin 0.5 MG/DL (0.2-1.0) 1.1 MG/DL (0.2-1.0) H Aspartate Amino Transf (AST/SGOT) 14 U/L (15-37) L 14 U/L (15-37) L Alanine Aminotransferase (ALT/SGPT) 37 U/L (12-78) 28 U/L (12-78) Alkaline Phosphatase 125 U/L (46-116) H 104 U/L (46-116) Total Protein 7.7 G/DL (6.4-8.2) 6.9 G/DL (6.4-8.2) Albumin 3.5 G/DL (3.4-5.0) 3.1 G/DL (3.4-5.0) L Globulin 4.2 g/dL 3.8 g/dL Albumin/Globulin Ratio 0.8 (1.0-2.7) L 0.8 (1.0-2.7) L Lipase 308 U/L (73-393) Urine Color Pale yellow Urine Appearance Slightly cloudy Urine pH 5 (4.5-8.0) Urine Specific [place] 1.015 (1.005-1.035) Urine Protein 1+ (NEGATIVE) H Urine Glucose (UA) Negative (NEGATIVE) Urine Ketones Negative (NEGATIVE) Urine Blood 5+ (NEGATIVE) H Urine Nitrite Negative (NEGATIVE) Urine Bilirubin Negative (NEGATIVE) Urine Urobilinogen Normal MG/DL (0.0-1.0) Urine Leukocyte Esterase Negative (NEGATIVE) Urine RBC 10-15 /HPF (0 - 2) H Urine WBC 0 /HPF (0 - 2) Urine Squamous Epithelial Cells Moderate /LPF (NONE/OCC) H Urine Bacteria Occasional /HPF (NONE) Urine HCG, Qualitative Negative (NEGATIVE) White Blood Count 2.2 K/UL (4.8-10.8) L 1.6 K/UL (4.8-10.8) *L Red Blood Count 1.26 M/UL (4.20-5.40) L 1.89 M/UL (4.20-5.40) L Hemoglobin 4.1 G/DL (12.0-16.0) *L 6.0 G/DL (12.0-16.0) Hematocrit 11.6 % (37.0-47.0) L 16.8 % (37.0-47.0) #L Mean Corpuscular Volume 92 FL (80-99) 89 FL (80-99) Mean Corpuscular Hemoglobin 32.5 PG (27.0-31.0) H 31.7 PG (27.0-31.0) H Mean Corpuscular Hemoglobin Concent 35.3 G/DL (32.0-36.0) 35.8 G/DL (32.0-36.0) Red Cell Distribution Width 11.4 % (11.6-14.8) L 11.8 % (11.6-14.8) Platelet Count 6 K/UL (150-450) *L 18 K/UL (150-450) #L Mean Platelet Volume 7.2 FL (6.5-10.1) 7.0 FL (6.5-10.1) Neutrophils (%) (Auto) % (45.0-75.0) % (45.0-75.0) Lymphocytes (%) (Auto) % (20.0-45.0) % (20.0-45.0) Monocytes (%) (Auto) % (1.0-10.0) % (1.0-10.0) Eosinophils (%) (Auto) % (0.0-3.0) % (0.0-3.0) Basophils (%) (Auto) % (0.0-2.0) % (0.0-2.0) Differential Total Cells Counted 100 100 Neutrophils % (Manual) 2 % (45-75) L 3 % (45-75) L Lymphocytes % (Manual) 98 % (20-45) H 95 % (20-45) H Monocytes % (Manual) 0 % (1-10) L 2 % (1-10) Eosinophils % (Manual) 0 % (0-3) 0 % (0-3) Basophils % (Manual) 0 % (0-2) 0 % (0-2) Band Neutrophils 0 % (0-8) 0 % (0-8) Nucleated Red Blood Cells 3 /100 WBC Platelet Estimate Decreased L Decreased L Platelet Morphology Normal Normal Spherocytes 2+ 1+ Other Cell Type Pathologist comment Phosphorus Level 4.1 MG/DL (2.5-4.9) Magnesium Level 2.0 MG/DL (1.8-2.4) Direct Bilirubin 0.2 MG/DL (0.0-0.3) Microbiology Date/Time Source Procedure Growth Status 11/14/18 21:22 Nasal Nares Influenza Types A,B Antigen (MAKAYLA) - Final Complete Height (Feet): 5 Height (Inches): 2.00 Weight (Pounds): 127 Medications Current Medications Medications (Trade) Dose Ordered Sig/Paco Route PRN Reason Start Time Stop Time Status Last Admin Dose Admin Acetaminophen (Tylenol) 650 mg Q4H PRN ORAL fever 11/15/18 07:45 12/15/18 07:44 Acetaminophen/ Hydrocodone Bitart ([place] 5/325) 1 tab Q6H PRN ORAL for mild pain (1-3) 11/15/18 08:00 11/22/18 00:29 Al Hydroxide/Mg Hydroxide (Mylanta II) 30 ml Q6H PRN ORAL dyspepsia 11/15/18 07:45 12/15/18 07:44 Dextrose (Dextrose 50%) STAT PRN IV Hypoglycemia 11/15/18 07:45 12/15/18 07:44 Diphenhydramine HCl (Benadryl) 25 mg Q6H PRN IVP Itching 11/15/18 10:00 12/15/18 09:59 Lorazepam (Ativan 2mg/ml 1ml) 0.5 mg Q4H PRN IV For Anxiety 11/15/18 07:45 11/22/18 07:44 Morphine Sulfate (Morphine Sulfate) 1 mg EVERY 4 HOURS PRN IVP for moderate pain (4-6) 11/15/18 08:00 11/22/18 07:44 Morphine Sulfate (Morphine Sulfate) 2 mg Q4HR PRN IVP severe pain (7-10) 11/15/18 08:00 Ondansetron HCl (Zofran) 4 mg Q4HR PRN IVP Nausea & Vomiting 11/14/18 23:30 Ondansetron HCl (Zofran) 4 mg Q6H PRN IVP Nausea & Vomiting 11/15/18 07:45 12/15/18 07:44 Oseltamivir Phosphate (Tamiflu) 75 mg Q12HR ORAL 11/15/18 21:00 11/20/18 20:59 Polyethylene Glycol (Miralax) 17 gm HSPRN PRN ORAL Constipation 11/15/18 07:45 12/15/18 07:44 Zolpidem Tartrate (Ambien) 5 mg HSPRN PRN ORAL Insomnia 11/15/18 07:45 11/22/18 07:44 Assessment/Plan Assessment/Plan Hematology Consultation REQ MD:Lali nOeil RFC: Severe Pancytopenia DOS: 11/15/18 ID 37 y/o F with hx of anemia presents to ED on 11/14 with weakness, dizziness. Patient was found to be pancytopenic with Hgb of 4.8. Also endorses fever, cough and L ear pain (throbbing, 7/10). Denied vaginal and rectal bleeding. Noted on smear to have atypical cells, flow cpending,but has severe pancytopenia , may need higher level of care. Allergies: No Known Allergies (Unverified , 11/04/18) Scheduled Cephalexin* (Keflex*), 500 MG ORAL EVERY 6 HOURS No Known Medications* (NKM - No Known Medications*), 0 ., (Reported) Trimethoprim/Sulfamethoxazole 160/800* (Bactrim Ds Tablet*), 1 TAB ORAL Q12H Resuscitation status Full Code Advanced Directive on File No Patient History Narrative Pmhx: as above Shx: Denies: smoking, alcohol use, drug use Fhx: non contributory Physical Exam: General Appearance: WD/WN Lines, tubes and drains: peripheral HEENT: normocephalic, atraumatic Neck: non-tender, normal alignment Respiratory/Chest: chest wall non-tender, clear Cardiovascular/Chest: normal peripheral pulses, normal rate Abdomen: normal bowel sounds Vital Signs Date Time Temp Pulse Resp B/P (MAP) Pulse Ox O2 Delivery O2 Flow Rate FiO2 11/15/18 12:00 98.1 93 18 118/73 (88) 98 11/15/18 11:56 99 11/15/18 08:24 96 11/15/18 07:36 Room Air 11/15/18 07:32 98.4 90 18 115/75 (88) 98 11/15/18 04:00 98.4 87 18 109/74 (86) 98 11/15/18 04:00 78 11/15/18 01:17 Room Air 11/15/18 00:00 97.7 81 20 105/70 (82) 96 11/15/18 00:00 88 11/14/18 23:25 101.0 94 18 116/70 100 Room Air 11/14/18 23:25 101.0 92 18 116/70 100 Room Air 11/14/18 23:21 101.0 11/14/18 21:45 101.0 103 18 107/68 100 Room Air 11/14/18 21:40 101.0 103 18 107/68 100 Room Air 11/14/18 21:35 101.0 103 19 105/65 100 11/14/18 21:30 101.3 105 17 109/69 100 Room Air 11/14/18 19:54 100.2 20 111/61 97 Room Air 11/14/18 18:30 100.2 116 20 111/61 97 Room Air Intake and Output 11/14/18 11/15/18 19:00 07:00 Intake Total 2120 ml Balance 2120 ml Intake Oral 120 ml IV Total 2000 ml # Voids 4 # Bowel Movements 1 Laboratory Tests Test 11/14/18 19:00 11/14/18 19:15 11/14/18 19:55 11/15/18 04:50 Prothrombin Time 11.3 SEC (9.30-11.50) Prothromb Time International Ratio 1.1 (0.9-1.1) Activated Partial Thromboplast Time 27 SEC (23-33) Sodium Level 137 MMOL/L (136-145) 140 MMOL/L (136-145) Potassium Level 3.5 MMOL/L (3.5-5.1) 3.9 MMOL/L (3.5-5.1) Chloride Level 103 MMOL/L (98-107) 106 MMOL/L (98-107) Carbon Dioxide Level 25 MMOL/L (21-32) 22 MMOL/L (21-32) Anion Gap 9 mmol/L (5-15) 12 mmol/L (5-15) Blood Urea Nitrogen 12 mg/dL (7-18) 8 mg/dL (7-18) Creatinine 0.8 MG/DL (0.55-1.30) 0.7 MG/DL (0.55-1.30) Estimat Glomerular Filtration Rate > 60 mL/min (>60) > 60 mL/min (>60) Glucose Level 139 MG/DL (74-106) H 92 MG/DL (74-106) Calcium Level 9.1 MG/DL (8.5-10.1) 8.7 MG/DL (8.5-10.1) Total Bilirubin 0.5 MG/DL (0.2-1.0) 1.1 MG/DL (0.2-1.0) H Aspartate Amino Transf (AST/SGOT) 14 U/L (15-37) L 14 U/L (15-37) L Alanine Aminotransferase (ALT/SGPT) 37 U/L (12-78) 28 U/L (12-78) Alkaline Phosphatase 125 U/L (46-116) H 104 U/L (46-116) Total Protein 7.7 G/DL (6.4-8.2) 6.9 G/DL (6.4-8.2) Albumin 3.5 G/DL (3.4-5.0) 3.1 G/DL (3.4-5.0) L Globulin 4.2 g/dL 3.8 g/dL Albumin/Globulin Ratio 0.8 (1.0-2.7) L 0.8 (1.0-2.7) L Lipase 308 U/L (73-393) Urine Color Pale yellow Urine Appearance Slightly cloudy Urine pH 5 (4.5-8.0) Urine Specific [place] 1.015 (1.005-1.035) Urine Protein 1+ (NEGATIVE) H Urine Glucose (UA) Negative (NEGATIVE) Urine Ketones Negative (NEGATIVE) Urine Blood 5+ (NEGATIVE) H Urine Nitrite Negative (NEGATIVE) Urine Bilirubin Negative (NEGATIVE) Urine Urobilinogen Normal MG/DL (0.0-1.0) Urine Leukocyte Esterase Negative (NEGATIVE) Urine RBC 10-15 /HPF (0 - 2) H Urine WBC 0 /HPF (0 - 2) Urine Squamous Epithelial Cells Moderate /LPF (NONE/OCC) H Urine Bacteria Occasional /HPF (NONE) Urine HCG, Qualitative Negative (NEGATIVE) White Blood Count 2.2 K/UL (4.8-10.8) L 1.6 K/UL (4.8-10.8) *L Red Blood Count 1.26 M/UL (4.20-5.40) L 1.89 M/UL (4.20-5.40) L Hemoglobin 4.1 G/DL (12.0-16.0) *L 6.0 G/DL (12.0-16.0) Hematocrit 11.6 % (37.0-47.0) L 16.8 % (37.0-47.0) #L Mean Corpuscular Volume 92 FL (80-99) 89 FL (80-99) Mean Corpuscular Hemoglobin 32.5 PG (27.0-31.0) H 31.7 PG (27.0-31.0) H Mean Corpuscular Hemoglobin Concent 35.3 G/DL (32.0-36.0) 35.8 G/DL (32.0-36.0) Red Cell Distribution Width 11.4 % (11.6-14.8) L 11.8 % (11.6-14.8) Platelet Count 6 K/UL (150-450) *L 18 K/UL (150-450) #L Mean Platelet Volume 7.2 FL (6.5-10.1) 7.0 FL (6.5-10.1) Neutrophils (%) (Auto) % (45.0-75.0) % (45.0-75.0) Lymphocytes (%) (Auto) % (20.0-45.0) % (20.0-45.0) Monocytes (%) (Auto) % (1.0-10.0) % (1.0-10.0) Eosinophils (%) (Auto) % (0.0-3.0) % (0.0-3.0) Basophils (%) (Auto) % (0.0-2.0) % (0.0-2.0) Differential Total Cells Counted 100 100 Neutrophils % (Manual) 2 % (45-75) L 3 % (45-75) L Lymphocytes % (Manual) 98 % (20-45) H 95 % (20-45) H Monocytes % (Manual) 0 % (1-10) L 2 % (1-10) Eosinophils % (Manual) 0 % (0-3) 0 % (0-3) Basophils % (Manual) 0 % (0-2) 0 % (0-2) Band Neutrophils 0 % (0-8) 0 % (0-8) Nucleated Red Blood Cells 3 /100 WBC Platelet Estimate Decreased L Decreased L Platelet Morphology Normal Normal Spherocytes 2+ 1+ Other Cell Type Pathologist comment Phosphorus Level 4.1 MG/DL (2.5-4.9) Magnesium Level 2.0 MG/DL (1.8-2.4) Direct Bilirubin 0.2 MG/DL (0.0-0.3) Microbiology Date/Time Source Procedure Growth Status 11/14/18 21:22 Nasal Nares Influenza Types A,B Antigen (MAKAYLA) - Final Complete Height (Feet): 5 Height (Inches): 2.00 Weight (Pounds): 127 Medications Current Medications Medications (Trade) Dose Ordered Sig/Paco Route PRN Reason Start Time Stop Time Status Last Admin Dose Admin Acetaminophen (Tylenol) 650 mg Q4H PRN ORAL fever 11/15/18 07:45 12/15/18 07:44 Acetaminophen/ Hydrocodone Bitart ([place] 5/325) 1 tab Q6H PRN ORAL for mild pain (1-3) 11/15/18 08:00 11/22/18 00:29 Al Hydroxide/Mg Hydroxide (Mylanta II) 30 ml Q6H PRN ORAL dyspepsia 11/15/18 07:45 12/15/18 07:44 Dextrose (Dextrose 50%) STAT PRN IV Hypoglycemia 11/15/18 07:45 12/15/18 07:44 Diphenhydramine HCl (Benadryl) 25 mg Q6H PRN IVP Itching 11/15/18 10:00 12/15/18 09:59 Lorazepam (Ativan 2mg/ml 1ml) 0.5 mg Q4H PRN IV For Anxiety 11/15/18 07:45 11/22/18 07:44 Morphine Sulfate (Morphine Sulfate) 1 mg EVERY 4 HOURS PRN IVP for moderate pain (4-6) 11/15/18 08:00 11/22/18 07:44 Morphine Sulfate (Morphine Sulfate) 2 mg Q4HR PRN IVP severe pain (7-10) 11/15/18 08:00 Ondansetron HCl (Zofran) 4 mg Q4HR PRN IVP Nausea & Vomiting 11/14/18 23:30 Ondansetron HCl (Zofran) 4 mg Q6H PRN IVP Nausea & Vomiting 11/15/18 07:45 12/15/18 07:44 Polyethylene Glycol (Miralax) 17 gm HSPRN PRN ORAL Constipation 11/15/18 07:45 12/15/18 07:44 Zolpidem Tartrate (Ambien) 5 mg HSPRN PRN ORAL Insomnia 11/15/18 07:45 11/22/18 07:44 Assessment/Plan: # Pancytopenia, severe -- unfortunately has atypical cells, potentially blasts with all-lines that are decreased, in a young patient concerning for leukemia --> obtain a flow cytometry --> r/o DIC syndrome, hapto, fibrinogen, coags --> monitor electrolytes --> may need a bone marrow biopsy on weekday --> may need transfer to higher level of care given massive pancytopenia --> hgb goal >7, plt >20k, anc >1500 --> neutropenic precautions are pending # Anemia of chronic disease --> anemia panel has been ordered --> may need iron, folate # Febrile syndrome (?viral symdrome vs non infectious)- r/o acute HIV, acute mononucleosis like illness (ie EBV, CMV, Toxoplasmosis), parvovirus --> influenza sc neg --> got tamiflu per id The timing of this note does not necessarily reflect the time of the patient was seen. Greatly appreciate consultation! Tristan Ahmadi MD Nov 15, 2018 16:25
--- NOTE | 2018-11-15 16:45 | History and Physical Report ---
DATE OF ADMISSION: 11/14/2018 CHIEF COMPLAINT: Headache, weakness. HISTORY OF PRESENT ILLNESS: This is a 37-year-old female who denies any past medical history except history of recent insect bite about 10 days ago, 11/04/2018 who presented to the emergency room at [facility], was subsequently was treated with the oral antibiotics with Bactrim and Keflex and subsequently was discharged home. The patient was at home, was followed up with the [facility] and complained about dizziness, weakness, headache. Her status is not improving and subsequently the patient was advised to come back to the hospital. Shortly after initial evaluation in the emergency, the patient was noted to be severely pancytopenic with hemoglobin of 4.8. Denies any vaginal bleeding. Denies any gum bleeding, no nose bleeding, or bright red blood per rectum. Shortly after initial evaluation in the emergency room, the patient was admitted to the hospital with pancytopenia, possible due to the medication-induced versus bone marrow suppression or hematological cancer. PAST MEDICAL HISTORY: As above history of recent insect bite. PAST SURGICAL HISTORY: Significant for gallbladder, cholecystectomy MEDICATIONS: Medications at home, she just completed a course of antibiotics. At this time, she is not on any medication; however, patient was prescribed Keflex and Bactrim, which she completed 7 days of course of antibiotic in the past , two days prior to admission. ALLERGIES: No known drug allergies. SOCIAL HISTORY: Denies any smoking, alcohol, or drugs. FAMILY HISTORY: Significant for diabetes. REVIEW OF SYSTEMS: Mostly as above. Denies any fever or chills. Denies any nausea or vomiting. Denies any suicidal or homicidal ideation. Denies any loss of consciousness. PHYSICAL EXAMINATION: VITAL SIGNS: On admission from the ER, temperature 98.4, pulse of 87, respiration 18, and blood pressure 109/74. GENERAL: The patient is awake and responsive, in no acute distress. HEENT: Head and neck examination, Pupils are reactive to light. Extraocular movements are intact. NECK: Supple. No JVD. LUNGS: Good air entry. No wheezing or rales. HEART: S1, S2. Regular rhythm. No gallops. ABDOMEN: Soft, nondistended, nontender. Positive bowel sounds. EXTREMITIES: No cyanosis, clubbing, or edema NEUROLOGICAL: Cranial nerves II through XII grossly intact. Moves all four extremities. Motor is 5/5 in all extremities. SKIN: No rashes was identified. No ecchymosis. LABORATORY AND DIAGNOSTIC DATA: On admission WBC of 2.2, hemoglobin of 4.1, hematocrit of 11, platelet . Sodium 137, potassium 3.5, chloride 103, bicarbonate 25, BUN 12, and creatinine 0.8. AST of 14, ALT of 37, alkaline phosphatase 125. Lipase is 308. PT 11, INR 1.1, and PTT of 27. Urinalysis +1 protein, +5 blood, 10 to 15 rbc's, moderate epithelial squamous cell. The patient's chest x-ray no acute process. ASSESSMENT: 1. Severe pancytopenia. 2. Recent history of insect bite. PLAN: Admit the patient to monitored unit. We will continue on a transfusion packed RBC as well as platelet. Discussed with the patient through the family member who is translating for Irish. Code status is Full Code. DVT prophylaxis. Heparin subcutaneous. We will recheck the blood tests. Follow up with Dr. Ahmadi, Hematology/Oncology consultation. Anthony Oneil M.D. DR: Sophia JOB#: [id number] CC:
[2018-11-15 17:34] LABS: INR 1.1 (0.9-1.1)
[2018-11-15 17:44] LABS: LACTATE DEHYDROGENASE 335 U/L (81-234)
[2018-11-15 18:14] LABS: % IRON SATURATION 64 % (15-50); IRON 192 ug/dL (50-175); TOTAL IRON BINDING CAPACITY 299 ug/dL (250-450)
--- NOTE | 2018-11-15 19:20 | NUR ---
NURSE NOTES: Received report from LEYDI Reed. Patient awake, alert and verbally responsive. No SOB, no acute distress, denies any pain nor any discomfort at this time. Pt with order to transfer to [facility], awaiting for bed availability. Will follow-up. Will continue plan of care for now.
--- NOTE | 2018-11-15 20:10 | NUR ---
NURSE NOTES: Patient transferred to [facility] floor, report given to LEYDI Gates. Patient awake, alert and verbally responsive. No SOB, no acute distress. family present at bedside. Endorsed plan of care.
[2018-11-15 20:25] VITALS: BP 121/67
--- NOTE | 2018-11-15 20:27 | NUR ---
NURSE NOTES: Received patient awake,alert,verbal,Congolese speaks little Maltese,resting comfortably.relatives at bedside.
[2018-11-15] MEDS ORDERED: Dextrose 50% 25ml Syringe IV PRN (20:30)
[2018-11-15] MEDS ORDERED: Oseltamivir 75mg cap ORAL SCH (21:00)
[2018-11-15] MEDS: Oseltamivir 75mg cap ORAL SCH (21:02)
[2018-11-16 04:00] VITALS: BP 111/69
--- NOTE | 2018-11-16 07:35 | NUR ---
HAND-OFF: Report given to Abdoul Duran RN.
--- NOTE | 2018-11-16 07:40 | NUR ---
NURSE NOTES: Received patient on bed, awake. Family at bedside. IV sites are both intact and patent. No signs of respiratory distress or pain. Room board updated, will continue to monitor.
[2018-11-16 08:00] VITALS: BP 111/70
[2018-11-16 09:07] LABS: HEMATOCRIT 21.8 % (37.0-47.0); HEMOGLOBIN 7.8 G/DL (12.0-16.0); MEAN CORPUSCULAR VOLUME 88 FL (80-99); PLATELET COUNT 32 K/UL (150-450); RED BLOOD COUNT 2.49 M/UL (4.20-5.40)
[2018-11-16 09:08] LABS: WHITE BLOOD COUNT 1.4 K/UL (4.8-10.8)
[2018-11-16 09:11] VITALS: BP 111/70
[2018-11-16 09:16] LABS: ALANINE AMINOTRANSFERASE 31 U/L (12-78); ALBUMIN 3.4 G/DL (3.4-5.0); ALBUMIN/GLOBULIN RATIO 0.8 (1.0-2.7); ALKALINE PHOSPHATASE 113 U/L (46-116); ANION GAP 10 mmol/L (5-15); ASPARTATE AMINO TRANSFERASE 10 U/L (15-37); BILIRUBIN,TOTAL 1.3 MG/DL (0.2-1.0); BLOOD UREA NITROGEN 11 mg/dL (7-18); CALCIUM 9.1 MG/DL (8.5-10.1); CARBON DIOXIDE 24 MMOL/L (21-32); CHLORIDE 101 MMOL/L (98-107); CHOLESTEROL 131 MG/DL (< 200); CREATININE 0.7 MG/DL (0.55-1.30); HDL CHOLESTEROL 30 MG/DL (40-60); POTASSIUM 3.7 MMOL/L (3.5-5.1); SODIUM 135 MMOL/L (136-145); TRIGLYCERIDES 141 MG/DL (30-150)
[2018-11-16] MEDS: Oseltamivir 75mg cap ORAL SCH ×2 (09:17→21:11)
[2018-11-16 09:19] LABS: BILIRUBIN,DIRECT 0.2 MG/DL (0.0-0.3)
--- NOTE | 2018-11-16 10:00 | NUR ---
NURSE NOTES: left message for MD Crowley for critical lab value of WBC 1.4. Left message and awaiting call back. Charge nurse made aware.
--- NOTE | 2018-11-16 10:41 | NUR ---
NURSE NOTES: MD Haywood returned call and was advised of patient WBC of 1.4. MD Haywood stated he is at [place] and will see the patient today. Charge nurse made aware.
[2018-11-16 12:01] VITALS: BP 109/70
--- NOTE | 2018-11-16 12:52 | Infectious Diseases Prog Note ---
Assessment/Plan Assessment/Plan Assessment: Bronchitis ( cough and sputum + ) CXR: NAPD Febrile/Viral syndrome- most likely leukemia vs lymphoma , also suspect viral URI (likely Flu given sick contacts) but r/o other viral URI and other viral infections (acute HIV, acute mononucleosis like illness :ie EBV, CMV, Toxoplasmosis); r/o parvovirus, -influenza sc neg Pancytopenia - No acute process Plan: - Add Cefepime ( Neutropenic fever) and Zithro ( Bronchitis ) -Continue empiric Tamiflu # 3 despite negative test given high suspicion - may need antibiotics PPX if Leukemia diagnosis stablished -HIV ab sc and VL, CMV, EBV, Toxoxoplasmosis, HSV ab, Histoplasma ag and ab, hepatitis panel, parvovirus ab, VZV Ab -f/u cx -Monitor CBC/CMP, temperatures -Heme onc eval -neutropenic/droplets precautions - bone marrow biopsy - flow cytometry Subjective Allergies: Coded Allergies: No Known Allergies (Unverified , 11/04/18) Subjective low grade fever Objective Vital Signs Last 24 Hour Vital Signs Date Time Temp Pulse Resp B/P (MAP) Pulse Ox O2 Delivery O2 Flow Rate FiO2 11/16/18 12:01 98.2 96 22 109/70 (83) 100 11/16/18 09:11 98.6 97 18 111/70 (84) 98 11/16/18 09:00 Room Air 11/16/18 08:00 98.6 97 18 111/70 (84) 98 11/16/18 04:00 100.3 104 19 111/69 (83) 97 11/15/18 21:19 Room Air 11/15/18 20:25 99.4 102 18 121/67 (85) 98 11/15/18 16:00 98.1 87 18 124/70 (88) 98 Height (Feet): 5 Height (Inches): 2.00 Weight (Pounds): 127 HEENT: atraumatic Respiratory/Chest: lungs clear Cardiovascular: normal rate, regular rhythm Abdomen: soft, non tender, no organomegaly Microbiology Date/Time Source Procedure Growth Status 11/14/18 21:22 Nasal Nares Influenza Types A,B Antigen (MAKAYLA) - Final Complete Laboratory Tests Test 11/15/18 16:00 11/15/18 16:20 11/15/18 16:40 11/16/18 05:25 Erythrocyte Sedimentation Rate 124 MM/HR (0-20) H Reticulocyte Count 0.2 % (0.0-2.0) Fibrinogen 437 mg/dL (200-400) H Iron Level 192 ug/dL (50-175) H Total Iron Binding Capacity 299 ug/dL (250-450) Percent Iron Saturation 64 % (15-50) H Unsaturated Iron Binding 107 ug/dL (112-346) L Lactate Dehydrogenase 335 U/L (81-234) H Carcinoembryonic Antigen 0.5 ng/mL (0.0-4.7) Vitamin B12 Level 237 PG/ML (193-986) Folate 7.4 NG/ML (8.6-58.9) L Prothrombin Time 11.4 SEC (9.30-11.50) Prothromb Time International Ratio 1.1 (0.9-1.1) Activated Partial Thromboplast Time 27 SEC (23-33) Ferritin 559 NG/ML (8-388) H Sickle Cell Screen Pending Hemoglobin A Pending Hemoglobin A2 Pending Hemoglobin C Pending Hemoglobin F () Pending Hemoglobin S Pending Variant Hemoglobin Pending Hemoglobin Electrophoresis Interp Pending Hemoglobin Interpretation Pending Hemoglobin Solubility Pending Homocystine 9.8 umol/L (0.0-15.0) Immunoglobulin A 164 mg/dL (87-352) White Blood Count 1.4 K/UL (4.8-10.8) *L Red Blood Count 2.49 M/UL (4.20-5.40) L Hemoglobin 7.8 G/DL (12.0-16.0) L Hematocrit 21.8 % (37.0-47.0) L Mean Corpuscular Volume 88 FL (80-99) Mean Corpuscular Hemoglobin 31.2 PG (27.0-31.0) H Mean Corpuscular Hemoglobin Concent 35.6 G/DL (32.0-36.0) Red Cell Distribution Width 12.0 % (11.6-14.8) Platelet Count 32 K/UL (150-450) #L Mean Platelet Volume 6.1 FL (6.5-10.1) L Neutrophils (%) (Auto) % (45.0-75.0) Lymphocytes (%) (Auto) % (20.0-45.0) Monocytes (%) (Auto) % (1.0-10.0) Eosinophils (%) (Auto) % (0.0-3.0) Basophils (%) (Auto) % (0.0-2.0) Differential Total Cells Counted 100 Neutrophils % (Manual) 6 % (45-75) L Lymphocytes % (Manual) 91 % (20-45) H Monocytes % (Manual) 3 % (1-10) Eosinophils % (Manual) 0 % (0-3) Basophils % (Manual) 0 % (0-2) Band Neutrophils 0 % (0-8) Atypical Lymphocytes Occasional Platelet Estimate Decreased L Platelet Morphology Normal Anisocytosis 1+ Sodium Level 135 MMOL/L (136-145) L Potassium Level 3.7 MMOL/L (3.5-5.1) Chloride Level 101 MMOL/L (98-107) Carbon Dioxide Level 24 MMOL/L (21-32) Anion Gap 10 mmol/L (5-15) Blood Urea Nitrogen 11 mg/dL (7-18) Creatinine 0.7 MG/DL (0.55-1.30) Estimat Glomerular Filtration Rate > 60 mL/min (>60) Glucose Level 97 MG/DL (74-106) Calcium Level 9.1 MG/DL (8.5-10.1) Total Bilirubin 1.3 MG/DL (0.2-1.0) H Direct Bilirubin 0.2 MG/DL (0.0-0.3) Aspartate Amino Transf (AST/SGOT) 10 U/L (15-37) L Alanine Aminotransferase (ALT/SGPT) 31 U/L (12-78) Alkaline Phosphatase 113 U/L (46-116) Total Protein 7.5 G/DL (6.4-8.2) Albumin 3.4 G/DL (3.4-5.0) Globulin 4.1 g/dL Albumin/Globulin Ratio 0.8 (1.0-2.7) L Triglycerides Level 141 MG/DL (30-150) Cholesterol Level 131 MG/DL (< 200) LDL Cholesterol 73 mg/dL (<100) HDL Cholesterol 30 MG/DL (40-60) L Cholesterol/HDL Ratio 4.4 (3.3-4.4) Thyroid Stimulating Hormone (TSH) 2.369 uiU/mL (0.358-3.740) Cytomegalovirus IgG Antibody Pending Flores-Prater Virus Capsid Ag IgG Ab Pending Flores-Prater Virus Capsid Ag IgM Ab Pending EBV Early Ag Ab (Restrict +Diffuse) Pending Flores-Prater Virus Nuclear Ag Ab Pending Hepatitis A IgM Antibody Pending Hepatitis B Surface Antigen Pending Hepatitis B Core IgM Antibody Pending Hepatitis C Antibody Pending Herpes Simplex Virus I IgG Antibody Pending Herpes Simplex Virus I IgM Ab (IFA) Pending Herpes Simplex Virus II IgG Ab Pending Herpes Simplex Virus II IgM Ab (IFA Pending Monoscreen Pending Histoplasma Mycelial Antibody Pending Histoplasma Antibody w Mycelial Ag Pending Histoplasma Antibody with Yeast Ag Pending HIV-1 RNA (PCR) log10 Value Pending HIV-1 RNA Ultraquantitative (PCR) Pending HIV (1&2) Antibody Rapid Negative (NEGATIVE) Parvovirus (B19) IgG Antibody Pending Parvovirus (B19) IgM Antibody Pending Toxoplasma IgG Antibody Pending Toxoplasma IgM Antibody Pending Current Medications Medications (Trade) Dose Ordered Sig/Paco Route PRN Reason Start Time Stop Time Status Last Admin Dose Admin Acetaminophen (Tylenol) 650 mg Q4H PRN ORAL fever (temp>100.5F) 11/15/18 20:15 12/15/18 20:14 Acetaminophen/ Hydrocodone Bitart (Corinth 5/325) 1 tab Q6H PRN ORAL for mild pain (1-3) 11/15/18 20:15 11/22/18 20:14 Al Hydroxide/Mg Hydroxide (Mylanta II) 30 ml Q6H PRN ORAL dyspepsia 11/15/18 20:15 12/15/18 20:14 Dextrose (Dextrose 50%) 25 ml Q30M PRN IV Hypoglycemia 11/15/18 20:30 12/15/18 20:16 Dextrose (Dextrose 50%) 50 ml Q30M PRN IV hypoglycemia 11/15/18 20:30 12/15/18 20:29 Diphenhydramine HCl (Benadryl) 25 mg Q6H PRN IVP Itching 11/15/18 20:15 12/15/18 20:14 Lorazepam (Ativan 2mg/ml 1ml) 0.5 mg Q4H PRN IV For Anxiety 11/15/18 20:15 11/22/18 20:14 Morphine Sulfate (Morphine Sulfate) 1 mg Q4H PRN IVP for moderate pain (4-6) 11/15/18 21:00 11/22/18 20:59 Morphine Sulfate (Morphine Sulfate) 2 mg Q4H PRN IVP severe pain (7-10) 11/15/18 20:30 11/22/18 20:29 11/16/18 09:21 Ondansetron HCl (Zofran) 4 mg Q6H PRN IVP Nausea & Vomiting 11/15/18 20:15 12/15/18 20:14 Oseltamivir Phosphate (Tamiflu) 75 mg Q12HR ORAL 11/15/18 21:00 11/20/18 20:59 11/16/18 09:17 Polyethylene Glycol (Miralax) 17 gm HSPRN PRN ORAL Constipation 11/15/18 20:15 12/15/18 20:14 Zolpidem Tartrate (Ambien) 5 mg HSPRN PRN ORAL Insomnia 11/15/18 20:15 11/22/18 20:14 Devante Haywood MD Nov 16, 2018 12:51
[2018-11-16] MEDS ORDERED: Cefepime HCl 500 MG in D5W 55 ML IVPB SCH (15:00)
[2018-11-16] MEDS: Azithromycin 500 MG in D5W 275 ML IV SCH (15:43)
[2018-11-16 16:00] VITALS: BP 109/70
[2018-11-16] MEDS: Cefepime HCl 500 MG in D5W 55 ML IVPB SCH ×2 (17:42→23:27)
--- NOTE | 2018-11-16 18:01 | Internal Med Progress Note ---
Subjective Date of Service: Nov 16, 2018 Physician Name Virgil Woods Attending Physician Anthony Oneil MD Current Medications Medications (Trade) Dose Ordered Sig/Paco Route PRN Reason Start Time Stop Time Status Last Admin Dose Admin Acetaminophen (Tylenol) 650 mg Q4H PRN ORAL fever (temp>100.5F) 11/15/18 20:15 12/15/18 20:14 11/16/18 17:42 Acetaminophen/ Hydrocodone Bitart (Festus 5/325) 1 tab Q6H PRN ORAL for mild pain (1-3) 11/15/18 20:15 11/22/18 20:14 Al Hydroxide/Mg Hydroxide (Mylanta II) 30 ml Q6H PRN ORAL dyspepsia 11/15/18 20:15 12/15/18 20:14 Azithromycin 500 mg/Dextrose 275 ml @ 275 mls/hr Q24HRS IV 11/16/18 16:00 11/22/18 16:59 11/16/18 15:43 Cefepime HCl 500 mg/Dextrose 55 ml @ 110 mls/hr EVERY 8 HOURS IVPB 11/16/18 17:00 11/23/18 16:59 11/16/18 17:42 Dextrose (Dextrose 50%) 25 ml Q30M PRN IV Hypoglycemia 11/15/18 20:30 12/15/18 20:16 Dextrose (Dextrose 50%) 50 ml Q30M PRN IV hypoglycemia 11/15/18 20:30 12/15/18 20:29 Diphenhydramine HCl (Benadryl) 25 mg Q6H PRN IVP Itching 11/15/18 20:15 12/15/18 20:14 Lorazepam (Ativan 2mg/ml 1ml) 0.5 mg Q4H PRN IV For Anxiety 11/15/18 20:15 11/22/18 20:14 Morphine Sulfate (Morphine Sulfate) 1 mg Q4H PRN IVP for moderate pain (4-6) 11/15/18 21:00 11/22/18 20:59 Morphine Sulfate (Morphine Sulfate) 2 mg Q4H PRN IVP severe pain (7-10) 11/15/18 20:30 11/22/18 20:29 11/16/18 09:21 Oseltamivir Phosphate (Tamiflu) 75 mg Q12HR ORAL 11/15/18 21:00 11/20/18 20:59 11/16/18 09:17 Polyethylene Glycol (Miralax) 17 gm HSPRN PRN ORAL Constipation 11/15/18 20:15 12/15/18 20:14 Zolpidem Tartrate (Ambien) 5 mg HSPRN PRN ORAL Insomnia 11/15/18 20:15 11/22/18 20:14 Allergies: Coded Allergies: No Known Allergies (Unverified , 11/04/18) ROS Limited/Unobtainable: No Constitutional: Reports: chills, fever HEENT: Reports: no symptoms Cardiovascular: Reports: no symptoms Respiratory: Reports: no symptoms Gastrointestinal/Abdominal: Reports: no symptoms Genitourinary: Reports: no symptoms Neurologic/Psychiatric: Reports: no symptoms Subjective 37 YO F admitted with pancytopenia. Cover for Int Med-Dr Oneil. Objective Last Vital Signs Date Time Temp Pulse Resp B/P (MAP) Pulse Ox O2 Delivery O2 Flow Rate FiO2 11/16/18 16:00 99.3 102 18 109/70 (83) 97 11/16/18 09:00 Room Air Laboratory Tests Test 11/16/18 05:25 White Blood Count 1.4 K/UL (4.8-10.8) *L Red Blood Count 2.49 M/UL (4.20-5.40) L Hemoglobin 7.8 G/DL (12.0-16.0) L Hematocrit 21.8 % (37.0-47.0) L Mean Corpuscular Volume 88 FL (80-99) Mean Corpuscular Hemoglobin 31.2 PG (27.0-31.0) H Mean Corpuscular Hemoglobin Concent 35.6 G/DL (32.0-36.0) Red Cell Distribution Width 12.0 % (11.6-14.8) Platelet Count 32 K/UL (150-450) #L Mean Platelet Volume 6.1 FL (6.5-10.1) L Neutrophils (%) (Auto) % (45.0-75.0) Lymphocytes (%) (Auto) % (20.0-45.0) Monocytes (%) (Auto) % (1.0-10.0) Eosinophils (%) (Auto) % (0.0-3.0) Basophils (%) (Auto) % (0.0-2.0) Differential Total Cells Counted 100 Neutrophils % (Manual) 6 % (45-75) L Lymphocytes % (Manual) 91 % (20-45) H Monocytes % (Manual) 3 % (1-10) Eosinophils % (Manual) 0 % (0-3) Basophils % (Manual) 0 % (0-2) Band Neutrophils 0 % (0-8) Atypical Lymphocytes Occasional Platelet Estimate Decreased L Platelet Morphology Normal Anisocytosis 1+ Sodium Level 135 MMOL/L (136-145) L Potassium Level 3.7 MMOL/L (3.5-5.1) Chloride Level 101 MMOL/L (98-107) Carbon Dioxide Level 24 MMOL/L (21-32) Anion Gap 10 mmol/L (5-15) Blood Urea Nitrogen 11 mg/dL (7-18) Creatinine 0.7 MG/DL (0.55-1.30) Estimat Glomerular Filtration Rate > 60 mL/min (>60) Glucose Level 97 MG/DL (74-106) Calcium Level 9.1 MG/DL (8.5-10.1) Total Bilirubin 1.3 MG/DL (0.2-1.0) H Direct Bilirubin 0.2 MG/DL (0.0-0.3) Aspartate Amino Transf (AST/SGOT) 10 U/L (15-37) L Alanine Aminotransferase (ALT/SGPT) 31 U/L (12-78) Alkaline Phosphatase 113 U/L (46-116) Total Protein 7.5 G/DL (6.4-8.2) Albumin 3.4 G/DL (3.4-5.0) Globulin 4.1 g/dL Albumin/Globulin Ratio 0.8 (1.0-2.7) L Triglycerides Level 141 MG/DL (30-150) Cholesterol Level 131 MG/DL (< 200) LDL Cholesterol 73 mg/dL (<100) HDL Cholesterol 30 MG/DL (40-60) L Cholesterol/HDL Ratio 4.4 (3.3-4.4) Thyroid Stimulating Hormone (TSH) 2.369 uiU/mL (0.358-3.740) Cytomegalovirus IgG Antibody Pending Flores-Prater Virus Capsid Ag IgG Ab Pending Flores-Prater Virus Capsid Ag IgM Ab Pending EBV Early Ag Ab (Restrict +Diffuse) Pending Flores-Prater Virus Nuclear Ag Ab Pending Hepatitis A IgM Antibody Pending Hepatitis B Surface Antigen Pending Hepatitis B Core IgM Antibody Pending Hepatitis C Antibody Pending Herpes Simplex Virus I IgG Antibody Pending Herpes Simplex Virus I IgM Ab (IFA) Pending Herpes Simplex Virus II IgG Ab Pending Herpes Simplex Virus II IgM Ab (IFA Pending Monoscreen Pending Histoplasma Mycelial Antibody Pending Histoplasma Antibody w Mycelial Ag Pending Histoplasma Antibody with Yeast Ag Pending HIV-1 RNA (PCR) log10 Value Pending HIV-1 RNA Ultraquantitative (PCR) Pending HIV (1&2) Antibody Rapid Negative (NEGATIVE) Parvovirus (B19) IgG Antibody Pending Parvovirus (B19) IgM Antibody Pending Toxoplasma IgG Antibody Pending Toxoplasma IgM Antibody Pending Varicella-Zoster IgG Antibody Pending Microbiology Date/Time Source Procedure Growth Status 11/14/18 21:22 Nasal Nares Influenza Types A,B Antigen (MAKAYLA) - Final Complete Intake and Output 11/15/18 11/16/18 19:00 07:00 Intake Total 360 ml Balance 360 ml Intake Oral 360 ml # Voids 2 Objective PHYSICAL EXAMINATION: GENERAL: The patient is awake and responsive, in no acute distress. HEENT: Head and neck examination, Pupils are reactive to light. Extraocular movements are intact. NECK: Supple. No JVD. LUNGS: Good air entry. No wheezing or rales. HEART: S1, S2. Regular rhythm. No gallops. ABDOMEN: Soft, nondistended, nontender. Positive bowel sounds. EXTREMITIES: No cyanosis, clubbing, or edema NEUROLOGICAL: Cranial nerves II through XII grossly intact. Moves all four extremities. Motor is 5/5 in all extremities. SKIN: No rashes was identified. No ecchymosis. Assessment/Plan Assessment/Plan ASSESSMENT: 1. Severe pancytopenia. 2. Recent history of insect bite. PLAN: Await flow cytometry-concerning for leukemia-see onc note S/P transfusion 1 unit packed RBC on each 11/14 & 11/15/18 S/P transfusion 1 unit platelet pheresis. Code status is Full Code. DVT prophylaxis. Heparin subcutaneous. We will recheck the blood tests. Follow up with Dr. Ahmadi, Hematology/Oncology consultation. Virgil Woods MD Nov 16, 2018 18:00
--- NOTE | 2018-11-16 19:20 | NUR ---
HAND-OFF: Report given to LEYDI Peraza.
[2018-11-16 20:00] VITALS: BP 107/68
--- NOTE | 2018-11-16 20:00 | NUR ---
NURSE NOTES: Received patient awake,alert,verbal,resting in bed,comfortable.
[2018-11-17] VITALS: BP 104/70
[2018-11-17 04:00] VITALS: BP 98/63
[2018-11-17] MEDS: Cefepime HCl 500 MG in D5W 55 ML IVPB SCH ×3 (05:01→21:09)
--- NOTE | 2018-11-17 07:12 | NUR ---
HAND-OFF: Report given to Rachele Zavala RN.
--- NOTE | 2018-11-17 07:34 | NUR ---
NURSE NOTES: Received pt with stable condition. pt is in bed with no sob nor in any form of distress noted. Bed in lowest position. call light within reach at all time. will continue to monitor
[2018-11-17 08:00] VITALS: BP 109/78
[2018-11-17] MEDS: Oseltamivir 75mg cap ORAL SCH ×2 (08:53→21:09)
[2018-11-17 10:51] LABS: HEMOGLOBIN 8.4 G/DL (12.0-16.0); MEAN CORPUSCULAR VOLUME 88 FL (80-99); PLATELET COUNT 29 K/UL (150-450); RED BLOOD COUNT 2.73 M/UL (4.20-5.40); WHITE BLOOD COUNT 1.5 K/UL (4.8-10.8)
[2018-11-17 10:58] LABS: ANION GAP 12 mmol/L (5-15); BLOOD UREA NITROGEN 12 mg/dL (7-18); CALCIUM 9.6 MG/DL (8.5-10.1); CARBON DIOXIDE 24 MMOL/L (21-32); CHLORIDE 100 MMOL/L (98-107); CREATININE 0.8 MG/DL (0.55-1.30); POTASSIUM 3.9 MMOL/L (3.5-5.1); SODIUM 136 MMOL/L (136-145)
--- NOTE | 2018-11-17 11:03 | General Progress Note ---
Assessment/Plan Assessment/Plan Assessment/Plan: # Pancytopenia, severe -- unfortunately has atypical cells, potentially blasts with all-lines that are decreased, in a young patient concerning for leukemia --> PENDING final results of flow cytometry --> r/o DIC syndrome, hapto, fibrinogen, coags -- currently no DIC --> monitor electrolytes --> may need a bone marrow biopsy on weekday --> may need transfer to higher level of care given massive pancytopenia --> hgb goal >7, plt >20k, anc >1500 --> neutropenic precautions --> recommend transfer to higher level of care with chemotherapy capability -- [facility], [facility], [facility], [facility], [facility], [id number], others... # Anemia of chronic disease --> anemia panel has been reviewed --> may need iron, folate # Febrile syndrome (?viral symdrome vs non infectious)- r/o acute HIV, acute mononucleosis like illness (ie EBV, CMV, Toxoplasmosis), parvovirus --> influenza sc neg --> got tamiflu per id # Elevated inflammatory markers The timing of this note does not necessarily reflect the time of the patient was seen. Greatly appreciate consultation! Subjective Allergies: Coded Allergies: No Known Allergies (Unverified , 11/04/18) Subjective 11/17: discussed with patient and with , RNs further plan of care, needs likely transfer to higher level of care Objective Last 24 Hour Vital Signs Date Time Temp Pulse Resp B/P (MAP) Pulse Ox O2 Delivery O2 Flow Rate FiO2 11/17/18 09:00 Room Air 11/17/18 08:00 97.3 101 17 109/78 (88) 97 11/17/18 04:00 98.1 105 18 98/63 (75) 97 11/17/18 00:00 97.3 81 16 104/70 (81) 98 11/16/18 21:25 Room Air 11/16/18 20:00 98.2 97 19 107/68 (81) 97 11/16/18 18:12 99.4 11/16/18 16:00 99.3 102 18 109/70 (83) 97 11/16/18 12:01 98.2 96 22 109/70 (83) 100 Intake and Output 11/16/18 11/17/18 18:59 06:59 Intake Total 330 ml 110 ml Balance 330 ml 110 ml IV Total 330 ml 110 ml # Voids 2 Laboratory Tests 11/17/18 10:10: White Blood Count 1.5*L, Red Blood Count 2.73L, Hemoglobin 8.4L, Hematocrit 24.0L, Mean Corpuscular Volume 88, Mean Corpuscular Hemoglobin 30.6, Mean Corpuscular Hemoglobin Concent 34.8, Red Cell Distribution Width 12.0, Platelet Count 29L, Mean Platelet Volume 6.9, Neutrophils (%) (Auto) , Lymphocytes (%) ( Auto) , Monocytes (%) (Auto) , Eosinophils (%) (Auto) , Basophils (%) (Auto) , Neutrophils % (Manual) [Pending], Lymphocytes % (Manual) [Pending], Platelet Estimate [Pending], Platelet Morphology [Pending], Sodium Level 136, Potassium Level 3.9, Chloride Level 100, Carbon Dioxide Level 24, Anion Gap 12, Blood Urea Nitrogen 12, Creatinine 0.8, Estimat Glomerular Filtration Rate > 60, Glucose Level 156H, Calcium Level 9.6 Height (Feet): 5 Height (Inches): 2.00 Weight (Pounds): 127 Objective Physical Exam: General Appearance: WD/WN Lines, tubes and drains: peripheral HEENT: normocephalic, atraumatic Neck: non-tender, normal alignment Respiratory/Chest: chest wall non-tender, clear Cardiovascular/Chest: normal peripheral pulses, normal rate Abdomen: normal bowel sounds Tristan Ahmadi MD Nov 17, 2018 11:03
[2018-11-17] MEDS ORDERED: Tubing IV Secondary IV ONE (11:32)
[2018-11-17 12:00] VITALS: BP 109/78
--- NOTE | 2018-11-17 12:37 | NUR ---
NURSE NOTES: Informed CM(Nora) that pt was recommended to transfer to higher level of care ([facility], [place],[facility], [facility]etc) per Dr. Ahmadi. Per Nora, she will call dr. Ahmadi and speak with him.
--- NOTE | 2018-11-17 15:41 | NUR ---
CASE MANAGEMENT: REVIEW 11/17/2018 SI: ANEMIA. PANCYTOPENIA. THROMBOCYTOPENIA T 97.9 HR 101 RR 17 B/P 109/78 SATS 97% ON RA WBC 1.5 GLU 156 IS: CEFEPIME IV Q8H AZITHROMYCIN IV Q24H MED/SURG STATUS Addendum: 11/17/18 at 1548 by Nora Coon CM PLAN OF CARE: TRANSFER FOR HIGHER LOC (SEE MD NOTES)
[2018-11-17 16:00] VITALS: BP 104/72
[2018-11-17] MEDS: Azithromycin 500 MG in D5W 275 ML IV SCH (16:12)
--- NOTE | 2018-11-17 17:04 | Internal Med Progress Note ---
Subjective Date of Service: Nov 17, 2018 Physician Name Virgil Woods Attending Physician Anthony Oneil MD Current Medications Medications (Trade) Dose Ordered Sig/Paco Route PRN Reason Start Time Stop Time Status Last Admin Dose Admin Acetaminophen (Tylenol) 650 mg Q4H PRN ORAL fever (temp>100.5F) 11/15/18 20:15 12/15/18 20:14 11/16/18 17:42 Acetaminophen/ Hydrocodone Bitart ([place] 5/325) 1 tab Q6H PRN ORAL for mild pain (1-3) 11/15/18 20:15 11/22/18 20:14 Al Hydroxide/Mg Hydroxide (Mylanta II) 30 ml Q6H PRN ORAL dyspepsia 11/15/18 20:15 12/15/18 20:14 Azithromycin 500 mg/Dextrose 275 ml @ 275 mls/hr Q24HRS IV 11/16/18 16:00 11/22/18 16:59 11/17/18 16:12 Cefepime HCl 500 mg/Dextrose 55 ml @ 110 mls/hr EVERY 8 HOURS IVPB 11/16/18 17:00 11/23/18 16:59 11/17/18 14:19 Dextrose (Dextrose 50%) 25 ml Q30M PRN IV Hypoglycemia 11/15/18 20:30 12/15/18 20:16 Dextrose (Dextrose 50%) 50 ml Q30M PRN IV hypoglycemia 11/15/18 20:30 12/15/18 20:29 Diphenhydramine HCl (Benadryl) 25 mg Q6H PRN IVP Itching 11/15/18 20:15 12/15/18 20:14 Lorazepam (Ativan 2mg/ml 1ml) 0.5 mg Q4H PRN IV For Anxiety 11/15/18 20:15 11/22/18 20:14 Morphine Sulfate (Morphine Sulfate) 1 mg Q4H PRN IVP for moderate pain (4-6) 11/15/18 21:00 11/22/18 20:59 Morphine Sulfate (Morphine Sulfate) 2 mg Q4H PRN IVP severe pain (7-10) 11/15/18 20:30 11/22/18 20:29 11/16/18 09:21 Oseltamivir Phosphate (Tamiflu) 75 mg Q12HR ORAL 11/15/18 21:00 11/20/18 20:59 11/17/18 08:53 Polyethylene Glycol (Miralax) 17 gm HSPRN PRN ORAL Constipation 11/15/18 20:15 12/15/18 20:14 Zolpidem Tartrate (Ambien) 5 mg HSPRN PRN ORAL Insomnia 11/15/18 20:15 11/22/18 20:14 Allergies: Coded Allergies: No Known Allergies (Unverified , 11/04/18) ROS Limited/Unobtainable: No Constitutional: Reports: no symptoms HEENT: Reports: no symptoms Cardiovascular: Reports: no symptoms Respiratory: Reports: no symptoms Gastrointestinal/Abdominal: Reports: no symptoms Genitourinary: Reports: no symptoms Neurologic/Psychiatric: Reports: no symptoms Subjective 37 YO F admitted with pancytopenia. Now leukemia. Cover for Int Med-Dr Oneil. Objective Last Vital Signs Date Time Temp Pulse Resp B/P (MAP) Pulse Ox O2 Delivery O2 Flow Rate FiO2 11/17/18 16:00 97.6 104 17 104/72 (83) 97 11/17/18 09:00 Room Air Laboratory Tests Test 11/17/18 10:10 White Blood Count 1.5 K/UL (4.8-10.8) *L Red Blood Count 2.73 M/UL (4.20-5.40) L Hemoglobin 8.4 G/DL (12.0-16.0) L Hematocrit 24.0 % (37.0-47.0) L Mean Corpuscular Volume 88 FL (80-99) Mean Corpuscular Hemoglobin 30.6 PG (27.0-31.0) Mean Corpuscular Hemoglobin Concent 34.8 G/DL (32.0-36.0) Red Cell Distribution Width 12.0 % (11.6-14.8) Platelet Count 29 K/UL (150-450) L Mean Platelet Volume 6.9 FL (6.5-10.1) Neutrophils (%) (Auto) % (45.0-75.0) Lymphocytes (%) (Auto) % (20.0-45.0) Monocytes (%) (Auto) % (1.0-10.0) Eosinophils (%) (Auto) % (0.0-3.0) Basophils (%) (Auto) % (0.0-2.0) Differential Total Cells Counted 100 Neutrophils % (Manual) 2 % (45-75) L Lymphocytes % (Manual) 95 % (20-45) H Monocytes % (Manual) 3 % (1-10) Eosinophils % (Manual) 0 % (0-3) Basophils % (Manual) 0 % (0-2) Band Neutrophils 0 % (0-8) Atypical Lymphocytes Rare Platelet Estimate Decreased L Platelet Morphology Normal Red Blood Cell Morphology Normal Haptoglobin Pending Sodium Level 136 MMOL/L (136-145) Potassium Level 3.9 MMOL/L (3.5-5.1) Chloride Level 100 MMOL/L (98-107) Carbon Dioxide Level 24 MMOL/L (21-32) Anion Gap 12 mmol/L (5-15) Blood Urea Nitrogen 12 mg/dL (7-18) Creatinine 0.8 MG/DL (0.55-1.30) Estimat Glomerular Filtration Rate > 60 mL/min (>60) Glucose Level 156 MG/DL (74-106) H Calcium Level 9.6 MG/DL (8.5-10.1) Microbiology Date/Time Source Procedure Growth Status 11/15/18 16:20 Blood Blood Culture - Preliminary NO GROWTH AFTER 24 HOURS Resulted 11/15/18 16:15 Blood Blood Culture - Preliminary NO GROWTH AFTER 24 HOURS Resulted 11/14/18 21:22 Nasal Nares Influenza Types A,B Antigen (MAKAYLA) - Final Complete Intake and Output 11/16/18 11/17/18 19:00 07:00 Intake Total 330 ml 110 ml Balance 330 ml 110 ml IV Total 330 ml 110 ml # Voids 2 Objective PHYSICAL EXAMINATION: GENERAL: The patient is awake and responsive, in no acute distress. HEENT: Head and neck examination, Pupils are reactive to light. Extraocular movements are intact. NECK: Supple. No JVD. LUNGS: Good air entry. No wheezing or rales. HEART: S1, S2. Regular rhythm. No gallops. ABDOMEN: Soft, nondistended, nontender. Positive bowel sounds. EXTREMITIES: No cyanosis, clubbing, or edema NEUROLOGICAL: Cranial nerves II through XII grossly intact. Moves all four extremities. Motor is 5/5 in all extremities. SKIN: No rashes was identified. No ecchymosis. Assessment/Plan Assessment/Plan ASSESSMENT: 1. Severe pancytopenia. 2. Recent history of insect bite. PLAN: Await flow cytometry-concerning for leukemia-see onc note S/P transfusion 1 unit packed RBC on each 11/14 & 11/15/18 S/P transfusion 1 unit platelet pheresis. Code status is Full Code. DVT prophylaxis. Heparin subcutaneous. We will recheck the blood tests. Follow up with Dr. Ahmadi, Hematology/Oncology consultation. Transfer to higher level of Oncology care-see oncology note. Virgil Woods MD Nov 17, 2018 17:04
--- NOTE | 2018-11-17 19:09 | NUR ---
HAND-OFF: Report given to LEYDI Gates.
--- NOTE | 2018-11-17 20:00 | NUR ---
NURSE NOTES: Received patient awake,alert,verbal,resting in bed,relatives at bedside.
[2018-11-17 20:06] VITALS: BP 108/78
[2018-11-18 03:59] VITALS: BP 108/73
[2018-11-18] MEDS: Cefepime HCl 500 MG in D5W 55 ML IVPB SCH ×2 (04:53→14:01)
--- NOTE | 2018-11-18 07:00 | NUR ---
HAND-OFF: Report given to Rachele Zavala RN].
[2018-11-18 07:13] LABS: ANION GAP 10 mmol/L (5-15); BLOOD UREA NITROGEN 13 mg/dL (7-18); CALCIUM 9.1 MG/DL (8.5-10.1); CARBON DIOXIDE 26 MMOL/L (21-32); CHLORIDE 102 MMOL/L (98-107); CREATININE 0.8 MG/DL (0.55-1.30); POTASSIUM 4.1 MMOL/L (3.5-5.1); SODIUM 138 MMOL/L (136-145)
[2018-11-18 07:15] LABS: HEMOGLOBIN 7.4 G/DL (12.0-16.0); MEAN CORPUSCULAR VOLUME 88 FL (80-99); PLATELET COUNT 17 K/UL (150-450); RED BLOOD COUNT 2.39 M/UL (4.20-5.40); RED CELL DISTRIBUTION WIDTH 11.7 % (11.6-14.8)
--- NOTE | 2018-11-18 07:15 | NUR ---
NURSE NOTES: Received pt from [facility] with stable condition. pt denies any pain nor discomfort. iv intact and patent. Afebrile. Bed in lowest position. call light within reach at all time. Will continue bentley onitor
[2018-11-18 07:35] LABS: WHITE BLOOD COUNT 1.4 K/UL (4.8-10.8)
[2018-11-18 08:00] VITALS: BP 117/67
--- NOTE | 2018-11-18 08:58 | General Progress Note ---
Assessment/Plan Assessment/Plan Assessment/Plan: # Pre-B cell ALL presented with pancytopenia, severe -- unfortunately has atypical cells, potentially blasts with all-lines that are decreased, in a young patient concerning for leukemia --> Flow cytometry c/w pe-B cell ALL --> r/o DIC syndrome, hapto, fibrinogen, coags -- currently no DIC --> monitor electrolytes --> may need a bone marrow biopsy on weekday --> may need transfer to higher level of care given massive pancytopenia ( can be done once transferred ) --> hgb goal >7, plt >20k, anc >1500 --> neutropenic precautions --> recommend transfer to higher level of care with chemotherapy capability -- [facility], [facility], [facility], [facility], [facility], [id number], others... # Anemia of chronic disease --> anemia panel has been reviewed --> may need iron, folate # Febrile syndrome (?viral symdrome vs non infectious)- r/o acute HIV, acute mononucleosis like illness (ie EBV, CMV, Toxoplasmosis), parvovirus --> influenza sc neg --> got tamiflu per id # Elevated inflammatory markers The timing of this note does not necessarily reflect the time of the patient was seen. Greatly appreciate consultation! Subjective Constitutional: Denies: no symptoms, chills, diaphoresis, fever, malaise, weakness, other HEENT: Denies: no symptoms, eye pain, blurred vision, tearing, double vision, ear pain, ear discharge, nose pain, nose congestion, throat pain, throat swelling, mouth pain, mouth swelling, other Cardiovascular: Denies: no symptoms, chest pain, edema, irregular heart rate, lightheadedness, palpitations, syncope, other Respiratory: Denies: no symptoms, cough, orthopnea, shortness of breath, SOB with excertion, SOB at rest, sputum, stridor, wheezing, other Gastrointestinal/Abdominal: Denies: no symptoms, abdomen distended, abdominal pain, black stools, tarry stools, blood in stool, constipated, diarrhea, difficulty swallowing, nausea, poor appetite, poor fluid intake, rectal bleeding , vomiting, other Genitourinary: Denies: no symptoms, burning, discharge, frequency, flank pain, hematuria, incontinence, pain, urgency, other Neurologic/Psychiatric: Denies: no symptoms, anxiety, depressed, emotional problems, headache, numbness, paresthesia, pre-existing deficit, seizure, tingling, tremors, weakness, other Endocrine: Denies: no symptoms, excessive sweating, flushing, intolerance to cold, intolerance to heat, increased hunger, increased thirst, increased urine, unexplained weight gain, unexplained weight loss, other Hematologic/Lymphatic: Denies: no symptoms, anemia, easy bleeding, easy bruising, other Allergies: Coded Allergies: No Known Allergies (Unverified , 11/04/18) Subjective 3: discussed with patient and with , RNs further plan of care, needs likely transfer to higher level of care 11/18: discussed extenisvel with family, given pre-B cell ALL, needs to transfer to higher level of care Objective Last 24 Hour Vital Signs Date Time Temp Pulse Resp B/P (MAP) Pulse Ox O2 Delivery O2 Flow Rate FiO2 11/18/18 03:59 98.4 108 18 108/73 (85) 94 11/17/18 21:00 Room Air 11/17/18 20:06 98.2 104 18 108/78 (88) 94 11/17/18 16:00 97.6 104 17 104/72 (83) 97 11/17/18 12:00 97.9 101 17 109/78 (88) 97 11/17/18 09:00 Room Air Intake and Output 11/17/18 11/18/18 18:59 06:59 Intake Total 680 ml 590 ml Balance 680 ml 590 ml Intake Oral 680 ml 480 ml IV Total 110 ml # Voids 3 3 # Bowel Movements 1 Laboratory Tests 11/17/18 10:10: White Blood Count 1.5*L, Red Blood Count 2.73L, Hemoglobin 8.4L, Hematocrit 24.0L, Mean Corpuscular Volume 88, Mean Corpuscular Hemoglobin 30.6, Mean Corpuscular Hemoglobin Concent 34.8, Red Cell Distribution Width 12.0, Platelet Count 29L, Mean Platelet Volume 6.9, Neutrophils (%) (Auto) , Lymphocytes (%) ( Auto) , Monocytes (%) (Auto) , Eosinophils (%) (Auto) , Basophils (%) (Auto) , Differential Total Cells Counted 100, Neutrophils % (Manual) 2L, Lymphocytes % ( Manual) 95H, Monocytes % (Manual) 3, Eosinophils % (Manual) 0, Basophils % ( Manual) 0, Band Neutrophils 0, Atypical Lymphocytes Rare, Platelet Estimate DecreasedL, Platelet Morphology Normal, Red Blood Cell Morphology Normal, Haptoglobin [Pending], Sodium Level 136, Potassium Level 3.9, Chloride Level 100 , Carbon Dioxide Level 24, Anion Gap 12, Blood Urea Nitrogen 12, Creatinine 0.8 , Estimat Glomerular Filtration Rate > 60, Glucose Level 156H, Calcium Level 9.6 11/18/18 06:30: White Blood Count 1.4*L, Red Blood Count 2.39L, Hemoglobin 7.4L, Hematocrit 21.0L, Mean Corpuscular Volume 88, Mean Corpuscular Hemoglobin 30.8, Mean Corpuscular Hemoglobin Concent 35.1, Red Cell Distribution Width 11.7, Platelet Count 17L, Mean Platelet Volume 5.8L, Neutrophils (%) (Auto) , Lymphocytes (%) ( Auto) , Monocytes (%) (Auto) , Eosinophils (%) (Auto) , Basophils (%) (Auto) , Neutrophils % (Manual) [Pending], Lymphocytes % (Manual) [Pending], Platelet Estimate [Pending], Platelet Morphology [Pending], Sodium Level 138, Potassium Level 4.1, Chloride Level 102, Carbon Dioxide Level 26, Anion Gap 10, Blood Urea Nitrogen 13, Creatinine 0.8, Estimat Glomerular Filtration Rate > 60, Glucose Level 100, Calcium Level 9.1 Height (Feet): 5 Height (Inches): 2.00 Weight (Pounds): 127 Objective Physical Exam: General Appearance: WD/WN Lines, tubes and drains: peripheral HEENT: normocephalic, atraumatic Neck: non-tender, normal alignment Respiratory/Chest: chest wall non-tender, clear Cardiovascular/Chest: normal peripheral pulses, normal rate Abdomen: normal bowel sounds Tristan Ahmadi MD Nov 18, 2018 08:58
[2018-11-18] MEDS: Oseltamivir 75mg cap ORAL SCH (09:33)
[2018-11-18 12:00] VITALS: BP 105/66
--- NOTE | 2018-11-18 12:21 | Infectious Diseases Prog Note ---
Assessment/Plan Assessment/Plan Assessment: Bronchitis ( cough and sputum + ) CXR: NAPD Febrile/Viral syndrome- Flow cytometry c/w pe-B cell ALL r/o other viral URI and other viral infections (acute HIV, acute mononucleosis like illness :ie EBV, CMV, Toxoplasmosis); r/o parvovirus, -Neg: influenza sc, HIV sc, Hepatitis panel -EBV panel consistent with prior infection -HSV IgG + Pancytopenia - No acute process Plan: - Continue Cefepime ( Neutropenic fever) #3 and Zithro #3 ( Bronchitis ) -Continue empiric Tamiflu # /5 despite negative test given high suspicion -f/u HIV VL, , EBV, Toxoxoplasmosis, HSV ab, Histoplasma ag and ab, parvovirus ab, VZV Ab -f/u cx -Monitor CBC/CMP, temperatures -Heme onc f/u -neutropenic/droplets precautions - bone marrow biopsy Subjective Allergies: Coded Allergies: No Known Allergies (Unverified , 11/04/18) Subjective afebrile >48hrs flow cytometry c/w with pre B cell ALL Objective Vital Signs Last 24 Hour Vital Signs Date Time Temp Pulse Resp B/P (MAP) Pulse Ox O2 Delivery O2 Flow Rate FiO2 11/18/18 09:59 Room Air 11/18/18 08:00 97.8 106 19 117/67 (84) 97 11/18/18 03:59 98.4 108 18 108/73 (85) 94 11/17/18 21:00 Room Air 11/17/18 20:06 98.2 104 18 108/78 (88) 94 11/17/18 16:00 97.6 104 17 104/72 (83) 97 Height (Feet): 5 Height (Inches): 2.00 Weight (Pounds): 127 Objective General Appearance: WD/WN Lines, tubes and drains: peripheral HEENT: normocephalic, atraumatic Neck: non-tender, normal alignment Respiratory/Chest: chest wall non-tender, lungs clear Cardiovascular/Chest: normal peripheral pulses, normal rate Abdomen: normal bowel sounds Microbiology Date/Time Source Procedure Growth Status 11/15/18 16:20 Blood Blood Culture - Preliminary NO GROWTH AFTER 48 HOURS Resulted 11/15/18 16:15 Blood Blood Culture - Preliminary NO GROWTH AFTER 48 HOURS Resulted Laboratory Tests Test 11/18/18 06:30 11/18/18 09:15 White Blood Count 1.4 K/UL (4.8-10.8) *L Red Blood Count 2.39 M/UL (4.20-5.40) L Hemoglobin 7.4 G/DL (12.0-16.0) L Hematocrit 21.0 % (37.0-47.0) L Mean Corpuscular Volume 88 FL (80-99) Mean Corpuscular Hemoglobin 30.8 PG (27.0-31.0) Mean Corpuscular Hemoglobin Concent 35.1 G/DL (32.0-36.0) Red Cell Distribution Width 11.7 % (11.6-14.8) Platelet Count 17 K/UL (150-450) L Mean Platelet Volume 5.8 FL (6.5-10.1) L Neutrophils (%) (Auto) % (45.0-75.0) Lymphocytes (%) (Auto) % (20.0-45.0) Monocytes (%) (Auto) % (1.0-10.0) Eosinophils (%) (Auto) % (0.0-3.0) Basophils (%) (Auto) % (0.0-2.0) Neutrophils % (Manual) Pending Lymphocytes % (Manual) Pending Platelet Estimate Pending Platelet Morphology Pending Sodium Level 138 MMOL/L (136-145) Potassium Level 4.1 MMOL/L (3.5-5.1) Chloride Level 102 MMOL/L (98-107) Carbon Dioxide Level 26 MMOL/L (21-32) Anion Gap 10 mmol/L (5-15) Blood Urea Nitrogen 13 mg/dL (7-18) Creatinine 0.8 MG/DL (0.55-1.30) Estimat Glomerular Filtration Rate > 60 mL/min (>60) Glucose Level 100 MG/DL (74-106) Uric Acid 3.9 MG/DL (2.6-7.2) Calcium Level 9.1 MG/DL (8.5-10.1) Fibrinogen 485 mg/dL (200-400) H Current Medications Medications (Trade) Dose Ordered Sig/Paco Route PRN Reason Start Time Stop Time Status Last Admin Dose Admin Acetaminophen (Tylenol) 650 mg Q4H PRN ORAL fever (temp>100.5F) 11/15/18 20:15 12/15/18 20:14 11/16/18 17:42 Acetaminophen/ Hydrocodone Bitart ([place] 5/325) 1 tab Q6H PRN ORAL for mild pain (1-3) 11/15/18 20:15 11/22/18 20:14 Al Hydroxide/Mg Hydroxide (Mylanta II) 30 ml Q6H PRN ORAL dyspepsia 11/15/18 20:15 12/15/18 20:14 Azithromycin 500 mg/Dextrose 275 ml @ 275 mls/hr Q24HRS IV 11/16/18 16:00 11/22/18 16:59 11/17/18 16:12 Cefepime HCl 500 mg/Dextrose 55 ml @ 110 mls/hr EVERY 8 HOURS IVPB 11/16/18 17:00 11/23/18 16:59 11/18/18 04:53 Dextrose (Dextrose 50%) 25 ml Q30M PRN IV Hypoglycemia 11/15/18 20:30 12/15/18 20:16 Dextrose (Dextrose 50%) 50 ml Q30M PRN IV hypoglycemia 11/15/18 20:30 12/15/18 20:29 Diphenhydramine HCl (Benadryl) 25 mg Q6H PRN IVP Itching 11/15/18 20:15 12/15/18 20:14 Lorazepam (Ativan 2mg/ml 1ml) 0.5 mg Q4H PRN IV For Anxiety 11/15/18 20:15 11/22/18 20:14 Morphine Sulfate (Morphine Sulfate) 1 mg Q4H PRN IVP for moderate pain (4-6) 11/15/18 21:00 11/22/18 20:59 Morphine Sulfate (Morphine Sulfate) 2 mg Q4H PRN IVP severe pain (7-10) 11/15/18 20:30 11/22/18 20:29 11/16/18 09:21 Oseltamivir Phosphate (Tamiflu) 75 mg Q12HR ORAL 11/15/18 21:00 11/20/18 20:59 11/18/18 09:33 Polyethylene Glycol (Miralax) 17 gm HSPRN PRN ORAL Constipation 11/15/18 20:15 12/15/18 20:14 Zolpidem Tartrate (Ambien) 5 mg HSPRN PRN ORAL Insomnia 11/15/18 20:15 11/22/18 20:14 Marcela Crowley M.D. Nov 18, 2018 12:21
--- NOTE | 2018-11-18 16:30 | NUR ---
NURSE NOTES: pt discharged to home with stable condition. Educated pt to go to nearest hospital from her home ([facility]) for leukemia treatment per Dr. Sullivan's recommendation. pt and pt's family agreed discharge. all belongings checked and signed. both (R)and(L)arm IV removed and covered with gauze and taped. no bleeding noted. Denies any pain nor discomfort.
--- NOTE | 2018-11-20 14:33 | Discharge Summary ---
Discharge Summary Discharge Summary _ DATE OF ADMISSION: 11/14/2018 DATE OF DISCHARGE: 11/18/2018 DISCHARGED BY: Dr. Oneil REASON FOR ADMISSION: 37 years old female without significant past medical history, except recent insect bite about 10 days ago , presented to emergency department with complaints of dizziness ,weakness and headache. She also reported fever with cough and earache on the left side. She denied gum or nose bleeding, she denied bright red blood per rectum. No vaginal bleeding. Vital signs revealed fever and tachycardia. Patient follows up at [facility] and was treated with oral antibiotics: Bactrim and Keflex However her condition not improved and subsequently she came to emergency room for further evaluation. Upon evaluation in emergency department patient was found to be severely pancytopenic with hemoglobin 4.1. WBC 2.2. Platelet count 6. Stable coagulation profile. Stable electrolytes. Chest x-ray revealed no acute cardiopulmonary pathology. She was admitted with diagnosis of pancytopenia, possibly medication induced versus bone marrow suppression versus hematological cancer. CONSULTANTS: pulmonary Dr. Escalera ID specialist Dr. Haywood field investigator/oncologist Dr. Ahmadi [facility]: Patient admitted to monitored floor. Hematology consult was requested. Patient undergone transfusion of 2 units of packed red blood cells and 1 unit of plateletpheresis. Prior to discharge hemoglobin 7.4 hematocrit 21. Platelet count initially increased and then down back to 17. Peripheral smear revealed blast cells -15. Venous duplex bilateral lower extremity revealed no evidence of acute DVT. Chest x-ray revealed no acute cardiopulmonary pathology. Supplemental oxygen provided as needed to keep pulse oximetry above 92%. Pulse oximetry was stable on room air. Senior Corporate Strategy Manager /oncologist seen and evaluated patient. 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 Patient was evaluated for DIC and currently had no evidence of DIC. Patient may need to have a bone marrow biopsy. Oncologist recommended transfer to higher level of care, given passive pancytopenia with the chemotherapy ability such as [facility], [facility], [facility], [facility], [facility] , [facility]. All counts were closely monitored with goal to keep hemoglobin above 7 , platelets above 20 and an absolute neutrophil count about 1500. Patient was on neutropenic precaution. Anemia workup was consistent with anemia of chronic disease. Anemia panel had been reviewed by field investigator. patient may need iron and folate Infectious disease specialist followed. Infectious disease specialist wanted to rule out other viral infections, including acute HIV ,acute mononucleosis-like illness /EBV, cytomegalovirus, toxoplasmosis ,parvovirus. Influenza screen was negative. HIV test was nonreactive. Hepatitis panel negative. [place] screen still pending. EBV panel was consistent with a prior infection. HCV showed positive IgG. Toxoplasma serology negative. VZV and parvovirus still pending. Patient was on empiric antibiotics : cefepime for neutropenic fever and azithromycin for bronchitis. Patient was also on empiric Tamiflu despite negative rapid influenza test, given high suspicion for flu. Patient was on neutropenic droplet precaution. Patient was recommended to have bone marrow biopsy. Patient was afebrile for 48 hours. Pain management was addressed and controlled. Patient was hemodynamically stable. Bowel regimen instituted. Electrolytes were closely monitored and replaced as needed. Patient was stable for discharge and follow-up with close hospital such as a [facility] for further management/ bone marrow biopsy and further management. FINAL DIAGNOSES: Pancytopenia Pre-B cell acute lymphocytic leukemia Febrile/viral syndrome Flu-like symptoms Bronchitis History of recent drop insect bite DISCHARGE MEDICATIONS: List of medication was sent with patient DISCHARGE INSTRUCTIONS: Patient was discharged home Follow up with primary care provider in one week. I have been assigned to dictate discharge summary for this account. I was not involved in the patient's management. Viji Osman NP Nov 20, 2018 14:33
== END 2018-11-18 16:30 | disposition home or self-care (01) | DRG 690 ==
LOC: EMR 19:21 → 2E 21:22 → EDBEDREQ 22:05 → 4E 11-15 20:10
PROC: 30233N1 Transfusion of Nonautologous Red Blood Cells into Peripheral Vein, Percutaneous Approach (ICD-10-PCS; principal; 2018-11-14)
PROC: 30233R1 Transfusion of Nonautologous Platelets into Peripheral Vein, Percutaneous Approach (ICD-10-PCS; 2018-11-15)
DX: C91.00 Acute lymphoblastic leukemia not having achieved remission (principal); D61.818 Other pancytopenia; B34.9 Viral infection, unspecified; J40 Bronchitis, not specified as acute or chronic
CPT/HCPCS: 36415; 71045; 80048; 80053; 80061; 81003; 81025; 82248; 82270; 82378; 82607; 82728; 82746; 82784; 83010; 83020; 83090; 83540; 83550; 83615; 83690; 83735; 84100; 84443; 84550; 85007; 85025; 85044; 85060; 85384; 85610; 85651; 85660; 85730; 86171; 86308; 86644; 86663; 86664; 86665; 86695; 86696; 86703; 86705; 86709; 86710; 86747; 86777; 86778; 86787; 86803; 86850; 86900; 86901; 86920; 87040; 87340; 87536; 93005; 93970; 96360; 99285